=== PATIENT | female | born 1995 | race Caucasian/White ===

== ENCOUNTER 2019-09-27 17:25 | Emergency (ER) | payer OTHER ==
--- NOTE | 2019-09-27 18:00 | EDM.PDOC ---
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 The patient notes that she is 20 weeks and 1 day . She is a . She is a patient of Dr. Jessica Higginbotham. The patient states that she started to notice some mild spotting yesterday, when she went to the bathroom and wiped. She says this was just a light 10 when wiping. She states that prior to coming to the ER, she did have intense cramping that was constant for 3 hours. She states now that she is in the ER, and laying back on the ER caught that the cramping has subsided a little bit. She does notice that she is felt decreased movement from the baby today as well. The patient notes that she was started on magnesium and iron 2 weeks ago for elevated blood pressures. She states that she's been taking her blood pressure since taking the magnesium and iron, and it been around 125/87. Patient notes she is not passing any clots per her vagina, and she states that the blood is not bright red it is only just dictated. She further denies any fevers or chills, dysuria, or urgency, she does have frequency, but states this is not out of the norm for her. She further denies any feelings of a gush of fluid. She thinks she had a good bowel movement this morning. Otherwise she denies any upper abdominal pain, chest pain, or shortness of breath, nausea/ vomiting or diarrhea. 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: - Past Surgical History Musculoskeletal Surgical History: Reports: Other (See Below) Other Musculoskeletal Surgeries/Procedures:: shoulder surgery Social & Family History - Tobacco Use Smoking Status *Q: Never Smoker Second Hand Smoke Exposure: No - Caffeine Use Caffeine Use: Reports: None - Recreational Drug Use Recreational Drug Use: No ED ROS GENERAL - Review of Systems Review Of Systems: See Below Constitutional: Denies: Fever, Chills HEENT: Reports: No Symptoms Respiratory: Denies: Shortness of Breath Cardiovascular: Reports: Blood Pressure Problem (has been using magnesium/iron for this). Denies: Chest Pain Endocrine: Reports: No Symptoms GI/Abdominal: Reports: Abdominal Pain (lower abd pain/pelvic ). Denies: Constipation, Diarrhea, Nausea, Vomiting : Reports: Frequency. Denies: Dysuria, Hematuria, Urgency Musculoskeletal: Reports: No Symptoms Skin: Reports: No Symptoms Neurological: Denies: Headache ED EXAM - Physical Exam Exam: See Below Exam Limited By: No Limitations General Appearance: Alert, WD/WN, No Apparent Distress, Anxious (pt seems anxious and is tearful at exam) Eye Exam: Bilateral Eye: EOMI, Normal Inspection, PERRL Ears: Normal External Exam Nose: Normal Inspection Throat/Mouth: Normal Inspection, Normal Lips, Normal Teeth, Normal Gums, Normal Oropharynx, Normal Voice, No Airway Compromise Head: Atraumatic, Normocephalic Neck: Normal Inspection Respiratory/Chest: No Respiratory Distress, Lungs Clear, Normal Breath Sounds, No Accessory Muscle Use, Chest Non-Tender Cardiovascular: Normal Peripheral Pulses, Regular Rate, Rhythm, No Murmur GI/Abdominal Exam: Normal Bowel Sounds, Soft, No Distention, No Mass, Tender ( mid lower abdomen, suprapubically) (Female) Exam: Normal Bimanual Exam, Normal External Exam, Normal Speculum Exam, Vaginal Discharge (whitish physiologic discharge). No: Adnexal Tenderness , Cervical Discharge, Cervical Fluid, Cervix Motion Tenderness, Tissue Present in Cervix/Vagina, Vaginal Bleeding Heart Tones: Present Heart Tones per Min: 150 Movement: Not Appreciated Extremities: Normal Inspection, Normal Capillary Refill Neurological: Alert, Oriented, Normal Cognition, No Motor/Sensory Deficits Psychiatric: Normal Affect, Normal Mood Skin Exam: Warm, Dry, Intact, Normal Color, No Rash Course - Vital Signs Last Recorded V/S: Last Vital Signs Temp 98.6 F 11/07/19 17:31 Pulse 91 09/27/19 17:31 Resp 16 09/27/19 17:31 BP 159/106 H 09/27/19 17:31 Pulse Ox 90 L 09/27/19 17:31 - Orders/Labs/Meds Labs: Laboratory Tests 09/27/19 Range/Units 19:46 Urine Color Light yellow (Yellow) Urine Appearance Clear (Clear) Urine pH 7.0 (5.0-8.0) Ur Specific [place] 1.015 (1.005-1.030) Urine Protein Negative (Negative) Urine Glucose (UA) Negative (Negative) Urine Ketones 2+ H (Negative) Urine Occult Blood Negative (Negative) Urine Nitrite Negative (Negative) Urine Bilirubin Negative (Negative) Urine Urobilinogen 0.2 (0.2-1.0) Ur Leukocyte Esterase Negative (Negative) Urine RBC 0-5 (0-5) /hpf Urine WBC 0-5 (0-5) /hpf Ur Squamous Epith Cells 0-5 (0-5) /hpf Amorphous Sediment Few H (NOT SEEN) /hpf Urine Bacteria Few (FEW) /hpf Urine Mucus Not seen (FEW) /hpf - Re-Assessments/Exams Free Text/Narrative Re-Assessment/Exam: 09/27/19 18:05 Patient resents to the ED for the evaluation of vaginal bleeding and cramping in 20 week . I did order ultrasound to check the viability of the fetus. It is reassuring that the Doppler tones are 150 bpm. Patient's blood pressure time of triage is mildly elevated at 159/106, this will be observed at this time. 09/27/19 19:27 Ultrasound is done, and the results are discussed with Dr. Portillo. She states that this small abruption could be causing some of her symptoms. She recommends no sexual intercourse, and no other things entered into the vagina for the next few days, she states to try to take it easy, to see if the symptoms do not resolve itself, she may take Tylenol as needed for pain relief. Dr. Portillo notes that if the pain increases or the bleeding increases, she is to return to the ER immediately for evaluation. Departure - Departure Time of Disposition: 19:59 Disposition: Home, Self-Care 01 Condition: Fair Clinical Impression: Abdominal cramping affecting , Uterine fibroid in - Discharge Information *PRESCRIPTION DRUG MONITORING PROGRAM REVIEWED*: No *COPY OF PRESCRIPTION DRUG MONITORING REPORT IN PATIENT LINA: No Instructions: Uterine Fibroids, Warning Signs During Referrals: Jessica Portillo MD [Primary Care Provider] - Forms: ED Department Discharge Additional Instructions: You were evaluated in the ER today regarding your abdominal pain, and vaginal bleeding in . Your ultrasound demonstrated heart rate of 140 bpm, and that the fetuses in the 41st percentile for age by current ultrasound, normal amount of amniotic fluid. There was a small area that was concerning for an abruption, which is an area of the placenta that has torn away from the uterine lining. This could explain some of your symptoms like the vaginal bleeding and abdominal cramping. Your ultrasound was discussed with your provider, Dr. Portillo, she recommends pelvic rest, so no sexual activity, our nothing else entering the vagina at this time, and try to get lots of bed rest over the weekend to see if this doesn 't help relieve some your symptoms. She states to take it really easily. If however your pain increases at all, or if the vaginal bleeding turns bright red , and increases for more than just a light tint, you should return to the ER for prompt management and further evaluation. Your ultrasound also demonstrated that you have a 2.1 cm uterine fibroid, this is a normal abnormal finding, you were given an educational handout regarding uterine fibroids. Your urinalysis was negative for any sort of UTI at this time. Please keep your appointments as previously scheduled with Dr. Portillo and for ultrasound. You may follow up with her on Tuesday, to see maybe if she would want to push her appointment up a little bit. Please return to the ED if your symptoms should change or worsen.
--- NOTE | 2019-09-27 19:00 | US ---
Limited obstetrical ultrasound: Multiple real-time images were obtained transvaginally. Comparison: Previous obstetrical ultrasounds are available, most recent study is 07/19/19. Dates: LMP: LMP given as 05/09/19, JET 02/13/20, gestational age 20 weeks 1 day Current ultrasound: JET 02/11/20, gestational age 20 weeks 3 days Earliest ultrasound (06/21/19): JET 02/13/20, gestational age 20 weeks 1 day presentation: Cephalic Placenta: Right lateral, no findings of placenta previa, minimal hypoechoic area is seen along the edge of the placenta suspicious for minimal abruption Amniotic fluid: REFUGIO 17.96 cm Other findings: Anterior uterine fibroid is seen measuring 2.1 cm. Measurements: BPD: 4.74 cm - 20 weeks 3 days Head circumference: 17.58 cm - 20 weeks 1 day Abdominal circumference: 15.04 cm - 20 weeks 2 days Femur length: 3.35 cm - 20 weeks 4 days Estimated weight: 348 g (0 lbs. 12 oz.), estimated weight 41st percentile for age by current ultrasound Heart rate: 140 BPM Cervical length: 4.9 cm Impression: 1. Single intrauterine fetus currently cephalic in presentation. Dates as noted above. 2. Minimal marginal abruption is felt to be present. 3. Small anterior uterine fibroid. 4. No other complicating process is identified. Diagnostic code #3
== END 2019-09-27 20:07 | disposition home or self-care (01) ==
LOC: JD.ED 17:25
DX: O34.12 Maternal care for benign tumor of corpus uteri, second trimester (principal); Z3A.20 20 weeks gestation of pregnancy
CPT/HCPCS: 76815; 76815-26; 81001; 99283; 99284-25

== ENCOUNTER 2020-02-06 03:00 | Inpatient (IN) | payer OTHER ==
[~2020-02-06 03:00] MED LIST: Bupivacaine 0.25% 10 ML SDV ONE
[2020-02-06] MEDS ORDERED: Acetaminophen 325 MG Tab PO PRN (07:49)
[2020-02-06] MEDS ORDERED: Famotidine 20 MG Tab PO PRN (07:49)
[2020-02-06] MEDS ORDERED: Lidocaine 1% 50 ML MDV INJECT ONE (07:49)
[2020-02-06] MEDS ORDERED: Calcium Carbonate 500 MG Tab.Chew PO PRN (07:49)
[2020-02-06] MEDS ORDERED: Sodium Chloride 0.9% 10 ML Syringe FLUSH PRN (07:49)
[2020-02-06] MEDS ORDERED: Ondansetron 4 MG/2 ML SDV IVPUSH PRN ×2 (07:49→10:02)
[2020-02-06] MEDS: Misoprostol 25 MCG (1/4 of 100 MCG) Tab VAG SCH ×3 (07:50→16:18)
[2020-02-06] MEDS ORDERED: Nalbuphine 10 MG/ML Syringe IVPUSH PRN (07:57)
[2020-02-06] MEDS ORDERED: Oxytocin/Lactated Ringers 10 UNIT/1,000 ML BAG IV SCH ×2 (08:00→16:00)
[2020-02-06] MEDS ORDERED: ePHEDrine 50 MG/ML SDV IVPUSH PRN (10:02)
[2020-02-06] MEDS ORDERED: fentaNYL 100 MCG/2 ML SDV EPIDUR PRN (10:02)
[2020-02-06] MEDS ORDERED: Bupivacaine/fentaNYL/NS 100 ML Bag EPIDUR SCH (10:15)
--- NOTE | 2020-02-06 10:17 | PCM.PREANE ---
Preanesthetic Assessment - Anesthesia/Transfusion/Family Hx Anesthesia History: Prior Anesthesia Reaction Type of Anesthesia Reaction: Other (see below) (quit breathing in PACU after shoulder surgery) Family History of Anesthesia Reaction: No Transfusion History: No Prior Transfusion(s) Intubation History: Unknown - Review of Systems General: No Symptoms Pulmonary: No Symptoms (Smoked prior to being : 1 ppd times 10 years.) Cardiovascular: No Symptoms (has been evaluated for heart and has come back negative: (patient states her and her parents have moments when they feel like their hearts stop for a short period and then start back up)), Palpitations, Lightheadedness (with position changes with ) Gastrointestinal: No Symptoms (GERD with ) Neurological: No Symptoms Other: Reports: None - Physical Assessment NPO Status Date: 02/06/20 NPO Status Time: 09:30 Vital Signs: Last Vital Signs Temp 37.0 C 02/06/20 08:27 Pulse 79 02/06/20 08:27 Resp 16 02/06/20 08:27 BP 125/69 02/06/20 08:27 Pulse Ox Height: 1.57 m Weight: 97.522 kg ASA Class: 2 Mental Status: Alert & Oriented x3 Airway Class: Mallampati = 2 Dentition: Reports: Normal Dentition, [place] Thyro-Mental Finger Breadths: 3 Mouth Opening Finger Breadths: 3 ROM/Head Extension: Full Lungs: Clear to Auscultation, Normal Respiratory Effort Cardiovascular: Regular Rate, Regular Rhythm, No Murmurs - Lab Values: Laboratory Last Values Blood Type O POSITIVE 02/06/20 08:30 Gel Antibody Screen Negative 02/06/20 08:30 All labs reviewed and noted and within acceptable ranges to proceed with epidural if desired. 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: - Past Surgical History Musculoskeletal Surgical History: Reports: Other (See Below) Other Musculoskeletal Surgeries/Procedures:: shoulder surgery - HOME MEDS Home Medications: Home Meds Docosahexanoic Acid [ Dha] 1 tab PO DAILY 09/27/19 [History] Ferrous Gluconate [Iron] 240 mg PO DAILY 09/27/19 [History] Magnesium 200 mg PO DAILY 09/27/19 [History] - CURRENT (IN HOUSE) MEDS Current Meds: Current Medications Acetaminophen (Tylenol) 650 mg PO Q4H PRN PRN Reason: Pain (Mild 1-3) and fever Calcium Carbonate/Glycine (Tums) 1,000 mg PO Q2H PRN PRN Reason: Indigestion Ephedrine Sulfate (Ephedrine Sulfate) 5 mg IVPUSH ASDIRECTED PRN PRN Reason: Hypotension Famotidine (Pepcid) 20 mg PO Q12H PRN PRN Reason: Heartburn Fentanyl (Sublimaze) 100 mcg EPIDUR Q3H PRN PRN Reason: Pain Fentanyl/Bupivacaine HCl (Fentanyl/Bupivacaine/Ns 2 Mcg-0.125% 100 Ml) 100 ml EPIDUR ASDIRECTED TETE Lactated Ringer's (Ringers, Lactated) 1,000 mls @ 100 mls/hr IV ASDIRECTED TETE Oxytocin/Lactated Ringer's (Pitocin In Lr 10 Units/1,000 Ml) 10 unit in 1,000 mls @ 500 mls/hr IV .CONTINUOUS [facility] Misoprostol (Cytotec) 25 mcg VAG Q4H TETE Stop: 02/06/20 16:01 Nalbuphine HCl (Nubain) 10 mg IVPUSH Q2H PRN PRN Reason: Pain Ondansetron HCl (Zofran) 4 mg IVPUSH Q4H PRN PRN Reason: Nausea/Vomiting Ondansetron HCl (Zofran) 4 mg IVPUSH ONETIME PRN PRN Reason: Nausea/Vomiting Sodium Chloride (Saline Flush) 10 ml FLUSH ASDIRECTED PRN PRN Reason: Keep Vein Open Discontinued Medications Lidocaine HCl (Xylocaine 1%) 20 ml INJECT ONETIME ONE Stop: 02/06/20 07:50
--- NOTE | 2020-02-06 11:01 | PCM.SN ---
- Free Text/Narrative Note: Anesthesia Noted: Start: 1000 Stop: 1030 Anesthesia requested for IV start. 20 gauge to right wrist times three attempts. Site patent/intact and flushed with 10ml's normal saline.
--- NOTE | 2020-02-06 14:45 | PCM.LDHP ---
L&D History of Present Illness - General Date of Service: 02/06/20 Admit Problem/Dx: Patient Status Order with Admit Dx/Problem 02/06/20 07:50 Patient Status [ADT] Routine Admission Diagnosis/Problem Admission Diagnosis/Problem Source of Information: Patient History Limitations: Reports: No Limitations - History of Present Illness Introduction:: 25 year old admitted for elective induction of labor at 39 weeks gestation. She has been bordering preeclampsia with protein in her urine and initially elevated bp readings at home, but then discovered that her home cuff was reading falsely high. She has not had elevated bp readings in the clinic. We have been doing twice weekly visits with BPP and NST that have all been wnl. PIH labs have been wnl except for urine protein to creatinine ratio of 0.2 to 0.4. Last BPP was yesterday and baby scored 8/8 and EFW was 7 lb 15 oz (68%). Posterior placenta and REFUGIO 10.4. She denies feeling contractions and membranes intact. GBS is negative. Her labs show blood type O+, antibody screen negative, infectious disease testing all negative. Good immunity to rubella and varicella. 1 hour glucola was 128. Female sex chromosomes noted on [place] and negative for trisomies. MSAFP is negative. Plans to breastfeed. 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: , Other (See Below) Other OB/BYN History: LSIL on pap 11/2017, normal paps since then - Past Surgical History Musculoskeletal Surgical History: Reports: Other (See Below) Other Musculoskeletal Surgeries/Procedures:: shoulder surgery Social & Family History - Family History Family Medical History: Noncontributory - Tobacco Use Smoking Status *Q: Never Smoker Second Hand Smoke Exposure: No - Caffeine Use Caffeine Use: Reports: None - Recreational Drug Use Recreational Drug Use: No - Living Situation & Occupation Living situation: Reports: with Significant Other 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) H&P Review of Systems - Review of Systems: Review Of Systems: See Below General: Reports: No Symptoms HEENT: Reports: No Symptoms Pulmonary: Reports: No Symptoms Cardiovascular: Reports: Edema (swelling in legs and hands) Gastrointestinal: Reports: Other (heartburn, using Pepcid) Genitourinary: Reports: No Symptoms Musculoskeletal: Reports: No Symptoms Skin: Reports: No Symptoms Psychiatric: Reports: No Symptoms Neurological: Reports: No Symptoms Hematologic/Lymphatic: Reports: No Symptoms Immunologic: Reports: No Symptoms L&D Exam - Exam Exam: See Below - Vital Signs Vital Signs: Last Vital Signs Temp 37.0 C 02/06/20 08:27 Pulse 79 02/06/20 08:27 Resp 16 02/06/20 08:27 BP 125/69 02/06/20 08:27 Pulse Ox Weight: 97.522 kg - OB Specific Contraction Duration (sec): no contractions Movement: Active Heart Tones: Present Heart Tones per Min: 140 Heart Rate (FHR) Variability: Moderate (6-25 bmp) Presentation: Vertex Estimated Weight: 7 lb 15 oz by ultrasound 02/05/20 - Goodwin Score Goodwin Score Cervix Position: Anterior Goodwin Score Consistency: Soft Goodwin Score Effacement: 31-50% Goodwin Score Dilation: 1-2 cm Goodwin Score Infant's Station: -3 Goodwin Score Total: 6 - Exam General: Alert, Oriented, Cooperative HEENT: Conjunctiva Clear, Mucosa Moist & [place], Pupils Equal Neck: Trachea Midline Lungs: Normal Respiratory Effort Cardiovascular: Regular Rate, Regular Rhythm GI/Abdominal Exam: Normal Bowel Sounds, Soft Rectal Exam: Deferred Genitourinary: Normal external exam Back Exam: Normal Inspection, Full Range of Motion Extremities: Pedal Edema (1+) Skin: Warm, Dry, Intact Neurological: Cranial Nerves Intact, Reflexes Equal Bilateral Psychiatric: Alert, Normal Affect, Normal Mood - Patient Data Lab Results Last 24 hrs: Laboratory Results - last 24 hr 02/06/20 02/06/20 Range/Units 08:30 08:30 WBC 10.71 H (3.98-10.04) K/mm3 RBC 4.61 (3.98-5.22) M/mm3 Hgb 12.7 (11.2-15.7) gm/dl Hct 39.5 (34.1-44.9) % MCV 85.7 (79.4-94.8) fl MCH 27.5 (25.6-32.2) pg MCHC 32.2 (32.2-35.5) g/dl RDW Std Deviation 42.8 (36.4-46.3) fL Plt Count 236 (182-369) K/mm3 MPV 10.9 (9.4-12.3) fl Neut % (Auto) 69.5 (34.0-71.1) % Lymph % (Auto) 16.8 L (19.3-51.7) % [place] % (Auto) 12.3 (4.7-12.5) % Eos % (Auto) 0.4 L (0.7-5.8) Baso % (Auto) 0.2 (0.1-1.2) % Neut # (Auto) 7.44 H (1.56-6.13) K/mm3 Lymph # (Auto) 1.80 (1.18-3.74) K/mm3 [place] # (Auto) 1.32 H (0.24-0.36) K/mm3 Eos # (Auto) 0.04 (0.04-0.36) K/mm3 Baso # (Auto) 0.02 (0.01-0.08) K/mm3 Blood Type O POSITIVE Gel Antibody Screen Negative Result Diagrams: 02/06/20 08:30 - Problem List (1) 39 weeks gestation of SNOMED Code(s): 19267045 ICD Code: Z3A.39 - 39 WEEKS GESTATION OF Status: Acute Current Visit: Yes (2) Encounter for elective induction of labor SNOMED Code(s): 197105357 ICD Code: Z34.90 - ENCNTR FOR SUPRVSN OF NORMAL , UNSP, UNSP TRIMESTER Status: Acute Current Visit: Yes Problem List Initiated/Reviewed/Updated: Yes Orders Last 24hrs: Active Orders 24 hr Category Date Time Status Patient Status [ADT] Routine ADT 02/06/20 07:50 Active Activity as Tolerated [RC] PFP Care 02/06/20 07:50 Active Communication Order [RC] ASDIRECTED Care 02/06/20 07:50 Active Heart Tones [RC] ASDIRECTED Care 02/06/20 07:50 Active Notify Provider [RC] ASDIRECTED Care 02/06/20 10:02 Active Notify Provider [RC] PFP Care 02/06/20 07:50 Active Notify Provider [RC] PRN Care 02/06/20 07:50 Active Oxygen Therapy [RC] ASDIRECTED Care 02/06/20 10:02 Active Peripheral IV Care [RC] Q2HR Care 02/06/20 07:50 Active Pulse Oximetry [RC] ASDIRECTED Care 02/06/20 10:02 Active Vital Signs [RC] PER UNIT ROUTINE Care 02/06/20 07:50 Active Regular Diet [DIET] Diet 02/06/20 Breakfast Active RAPID PLASMA REAGIN,RPR [CHEM] Routine Lab 02/06/20 08:30 Received Acetaminophen [Tylenol] Med 02/06/20 07:49 Active 650 mg PO Q4H PRN Bupivacaine/fentaNYL/NS [fentaNYL/Bupivacaine/NS 2 MCG- Med 02/06/20 10:15 Active 0.125% 100 ML] 100 ml EPIDUR ASDIRECTED Calcium Carbonate [Tums] Med 02/06/20 07:49 Active 1,000 mg PO Q2H PRN Famotidine [Pepcid] Med 02/06/20 07:49 Active 20 mg PO Q12H PRN Lactated Ringers [Ringers, Lactated] 1,000 ml Med 02/06/20 08:00 Active IV ASDIRECTED Nalbuphine [Nubain] Med 02/06/20 07:57 Active 10 mg IVPUSH Q2H PRN Ondansetron [Zofran] Med 02/06/20 10:02 Active 4 mg IVPUSH ONETIME PRN Ondansetron [Zofran] Med 02/06/20 07:49 Active 4 mg IVPUSH Q4H PRN Oxytocin/Lactated Ringers [Pitocin in LR 10 Units/1,000 Med 02/06/20 08:00 Active ML] 10 unit in 1,000 ml IV .CONTINUOUS Sodium Chloride 0.9% [Saline Flush] Med 02/06/20 07:49 Active 10 ml FLUSH ASDIRECTED PRN ePHEDrine [ePHEDrine sulfate] Med 02/06/20 10:02 Active 5 mg IVPUSH ASDIRECTED PRN fentaNYL [Sublimaze] Med 02/06/20 10:02 Active 100 mcg EPIDUR Q3H PRN miSOPROStoL [Cytotec] Med 02/06/20 08:00 Active 25 mcg VAG Q4H Electronic Heart Tones Ext w TOCO [WOMSER] Oth 02/06/20 07:50 Ordered Routine Electronic Heart Tones Internal [WOMSER] Per Unit Oth 02/06/20 07:50 Ordered Routine Peripheral IV Insertion Adult [OM.PC] Routine Oth 02/06/20 07:50 Ordered Resuscitation Status Routine Resus Stat 02/06/20 07:49 Ordered Medication Orders Acetaminophen (Tylenol) 650 mg PO Q4H PRN PRN Reason: Pain (Mild 1-3) and fever Calcium Carbonate/Glycine (Tums) 1,000 mg PO Q2H PRN PRN Reason: Indigestion Ephedrine Sulfate (Ephedrine Sulfate) 5 mg IVPUSH ASDIRECTED PRN PRN Reason: Hypotension Famotidine (Pepcid) 20 mg PO Q12H PRN PRN Reason: Heartburn Fentanyl (Sublimaze) 100 mcg EPIDUR Q3H PRN PRN Reason: Pain Fentanyl/Bupivacaine HCl (Fentanyl/Bupivacaine/Ns 2 Mcg-0.125% 100 Ml) 100 ml EPIDUR ASDIRECTED TETE Lactated Ringer's (Ringers, Lactated) 1,000 mls @ 100 mls/hr IV ASDIRECTED TETE Oxytocin/Lactated Ringer's (Pitocin In Lr 10 Units/1,000 Ml) 10 unit in 1,000 mls @ 500 mls/hr IV .CONTINUOUS [facility] Misoprostol (Cytotec) 25 mcg VAG Q4H TETE Stop: 02/06/20 16:01 Last Admin: 02/06/20 12:30 Dose: 25 mcg Admin: 02/06/20 07:50 Dose: 25 mcg Nalbuphine HCl (Nubain) 10 mg IVPUSH Q2H PRN PRN Reason: Pain Ondansetron HCl (Zofran) 4 mg IVPUSH Q4H PRN PRN Reason: Nausea/Vomiting Ondansetron HCl (Zofran) 4 mg IVPUSH ONETIME PRN PRN Reason: Nausea/Vomiting Sodium Chloride (Saline Flush) 10 ml FLUSH ASDIRECTED PRN PRN Reason: Keep Vein Open Assessment/Plan Comment:: 25 year old at 39 weeks gestation admitted for elective induction of labor. GBS negative, blood type O +. Cervix is soft, 30% effaced, anterior and 1 cm dilated. Station -3. Cytotec 25 mcg pv placed to ripen cervix and will plan to repeat doses q 4 hours up to a total of 3 doses if needed and then transition to pitocin IV for induction. Will plan AROM when appropriate. Patient would like to try to avoid epidural. She plans to breastfeed.
--- NOTE | 2020-02-06 15:16 | PCM.SN ---
- Free Text/Narrative Note: Patient has had 2 doses of cytotec 25 mcg pv and is still comfortable, only feeling cramping. Her BP has been borderline with systolic 140-150 range. O/E cervix anterior, soft, 3 cm dilated and 50% effaced. STation -1. Assessment: Cervical ripening. She is not currently on the monitor, but is not feeling contractions. Plan: Next cytotec dose is due at 1600 and will get her back on the monitor to evaluate if she is having contractions. Will decide at 1600 if we will do another cytotec dose or switch to pitocin IV. Plan AROM when appropriate.
[2020-02-06] MEDS: Lactated Ringers 1,000 ML IV SCH ×2 (16:18→19:56)
--- NOTE | 2020-02-06 20:33 | PCM.SN ---
- Free Text/Narrative Note: Pitocin is currently at 12 mu/min. Patient is comfortable, just feeling pressure and tightenings, but not really pain. [place] is showing irregular contraction pattern with triplets most of the time. FHR is reactive, moderate variability, good accelerations with baseline 160 at this time. BP has been 130 -140/70-90. O/E: Cervix anterior, soft, 50-60% effaced, 4 cm dilated and station -1. AROM performed at about 2020 to augment labor and large amount of clear fluid drained. Fetus tolerated the procedure. A: Latent phase of labor, AROM for clear fluid. FHR category I. Patient is comfortable. P: Continue pitocin induction per protocol. Expectant management of labor. Anticipate vaginal delivery.
[2020-02-07] MEDS: Lactated Ringers 1,000 ML IV SCH (00:16)
[2020-02-07] MEDS ORDERED: Lidocaine 1% 50 ML MDV ONE (03:06)
--- NOTE | 2020-02-07 03:56 | PCM.DEL ---
L & D Note - General Info Date of Service: 02/07/20 Mother's Due Date: 02/13/20 - Delivery Note Labor: Induced by Oxytocin Cervical Ripening Method: Misoprostil Delivery Outcome: Livebirth Delivery Method: Spontaneous Vaginal Delivery-Single Infant Delivery Mode: Spontaneous Presentation: Right Occiput Anterior (SANTA) Nuchal Cord: None Prep: Povidone-Iodine (Betadine Anesthesia Type: Epidural Anesthetic: Lidocaine (Xylocaine) 1% Plain Local Anesthetic Volume: Other (20 ml) Amniotic Fluid Description: Clear Episiotomy Type: None Laceration: 1st Degree, Labial Suture type: Vicryl Suture size: 4-0 (running subcuticular stitch for bilateral labial tears) Placenta: Intact, Spontaneous Cord: 3 Vessels Estimated Blood Loss: 200 Resuscitation Needed: No : Bulb Syringe, Stimulated, Warmed, [place] Used Provider: Jessica Portillo Score 1 min: 8 Score 5 min: 9 Delivery Comments (Free Text/Narrative):: 25 year old admitted for elective induction of labor at 39 weeks gestation. She has been bordering preeclampsia with protein in her urine and initially elevated bp readings at home, but then discovered that her home cuff was reading falsely high. She has not had elevated bp readings in the clinic. We have been doing twice weekly visits with BPP and NST that have all been wnl. PIH labs have been wnl except for urine protein to creatinine ratio of 0.2 to 0.4. Last BPP was yesterday and baby scored 8/8 and EFW was 7 lb 15 oz (68%). Posterior placenta and REFUGIO 10.4. She denies feeling contractions and membranes intact. GBS is negative. Her labs show blood type O+, antibody screen negative, infectious disease testing all negative. Good immunity to rubella and varicella. 1 hour glucola was 128. Female sex chromosomes noted on Prequel and negative for trisomies. MSAFP is negative. Plans to breastfeed. She received cytotec 25 mcg pv x 2 doses and when the third dose was due her cervix was 3 cm dilated, 50 % effaced and station -1. We decided to start pitocin IV per protocol at that time. Pitocin increased to a max of 12 mu/min and I performed an AROM at 2019 to augment her labor. Shortly after AROM, her contractions became much stronger and painful to her. She was 4 cm dilated at that time. She received an epidural at midnight and had good relief with that. Her bp readings had been elevated in the 140-160/100-110 range before the epidural, but after they settled into the 115-130/70 range. We started to see some late decelerations. She received IV fluid boluses and when she was checked at about 0200, she was completely dilated, station 0 and I was called. We started pushing at 0213 and she did well and baby tolerated second stage of labor. Head delivered from a SANTA presentation, there was no nuchal cord and then the shoulders and rest of the baby delivered without difficulty. Time of delivery was 0300 and it was a baby girl. She cried at the perineum. Mouth and nose were suctioned with the bulb suction and then baby was placed skin to skin on mother's abdomen. Once the cord stopped pulsating, it was clamped and cut and baby was moved up to mother's chest, skin to skin. Apgars were 8 and 9 at 1 and 5 minutes respectively. Placenta delivered spontaneously at 0304 and was intact and there were 3 vessels in the cord. IV pitocin bolus was started after delivery of baby. There were 2 labial tears that were repaired with 4-0 vicryl with a running subcuticular stitch. There was a minor 1st degree perineal laceration that did not need to be sutured. EBL 200 ml. Bimanual exam was done, some blood clots expressed and fundus was firm. Both Mom and Baby were left in the delivery room in stable condition. Baby was latched by 0330. Induction Criteria - Goodwin Score Goodwin Score Dilation: 1-2 cm Goodwin Score Effacement: 40-50% Goodwin Score 's Station: -3 Goodwin Score Consistency: Soft Goodwin Score Cervix Position: Anterior Goodwin Score Total: 6 Goodwin Score Presenting Part: Reports: Cephalic - Induction Gestational Age >/= 39 wks: Yes Medical Indication: Elective induction Estimated Pelvis: Reports: Adequate Reassuring Monitoring Strip: Yes Absence of Tachy Systole: Yes - Augmentation Estimated Pelvis: Reports: Adequate Weight Estimated:: Reports: AGA Reassuring Monitoring Strip: Yes Absence of Tachy Systole: Yes - General Info Date of Service: 02/07/20 Admission Dx/Problem (Free Text): Patient Status Order with Admit Dx/Problem 02/06/20 07:50 Patient Status [ADT] Routine Admission Diagnosis/Problem Admission Diagnosis/Problem Functional Status: Reports: Pain Controlled - Review of Systems General: Reports: No Symptoms HEENT: Reports: No Symptoms Pulmonary: Reports: No Symptoms Cardiovascular: Reports: No Symptoms Gastrointestinal: Reports: No Symptoms Genitourinary: Reports: No Symptoms Musculoskeletal: Reports: No Symptoms Skin: Reports: No Symptoms Neurological: Reports: No Symptoms Psychiatric: Reports: No Symptoms - Patient Data Vitals - Most Recent: Last Vital Signs Temp 37.0 C 02/06/20 08:27 Pulse 79 02/06/20 08:27 Resp 16 02/06/20 08:27 BP 125/69 02/06/20 08:27 Pulse Ox Weight - Most Recent: 97.522 kg I&O - Last 24 Hours: Intake & Output 02/06/20 02/06/20 02/07/20 14:59 22:59 06:59 Intake Total 1240 1700 Output Total 300 Balance 1240 1400 Lab Results Last 24 Hours: Laboratory Results - last 24 hr 02/06/20 02/06/20 02/06/20 Range/Units 08:30 08:30 08:30 WBC 10.71 H (3.98-10.04) K/mm3 RBC 4.61 (3.98-5.22) M/mm3 Hgb 12.7 (11.2-15.7) gm/dl Hct 39.5 (34.1-44.9) % MCV 85.7 (79.4-94.8) fl MCH 27.5 (25.6-32.2) pg MCHC 32.2 (32.2-35.5) g/dl RDW Std Deviation 42.8 (36.4-46.3) fL Plt Count 236 (182-369) K/mm3 MPV 10.9 (9.4-12.3) fl Neut % (Auto) 69.5 (34.0-71.1) % Lymph % (Auto) 16.8 L (19.3-51.7) % [place] % (Auto) 12.3 (4.7-12.5) % Eos % (Auto) 0.4 L (0.7-5.8) Baso % (Auto) 0.2 (0.1-1.2) % Neut # (Auto) 7.44 H (1.56-6.13) K/mm3 Lymph # (Auto) 1.80 (1.18-3.74) K/mm3 [place] # (Auto) 1.32 H (0.24-0.36) K/mm3 Eos # (Auto) 0.04 (0.04-0.36) K/mm3 Baso # (Auto) 0.02 (0.01-0.08) K/mm3 RPR Non-reactive (NONREACTIVE) Blood Type O POSITIVE Gel Antibody Screen Negative Med Orders - Current: Current Medications Acetaminophen (Tylenol) 650 mg PO Q4H PRN PRN Reason: Pain (Mild 1-3) and fever Calcium Carbonate/Glycine (Tums) 1,000 mg PO Q2H PRN PRN Reason: Indigestion Ephedrine Sulfate (Ephedrine Sulfate) 5 mg IVPUSH ASDIRECTED PRN PRN Reason: Hypotension Famotidine (Pepcid) 20 mg PO Q12H PRN PRN Reason: Heartburn Fentanyl (Sublimaze) 100 mcg EPIDUR Q3H PRN PRN Reason: Pain Last Admin: 02/06/20 23:37 Dose: 100 mcg Fentanyl/Bupivacaine HCl (Fentanyl/Bupivacaine/Ns 2 Mcg-0.125% 100 Ml) 100 ml EPIDUR ASDIRECTED TETE Last Admin: 02/06/20 23:38 Dose: 100 ml Lactated Ringer's (Ringers, Lactated) 1,000 mls @ 100 mls/hr IV ASDIRECTED TETE Last Admin: 02/07/20 00:16 Dose: 100 mls/hr Oxytocin/Lactated Ringer's (Pitocin In Lr 10 Units/1,000 Ml) 10 unit in 1,000 mls @ 500 mls/hr IV .CONTINUOUS TETE Oxytocin/Lactated Ringer's (Pitocin In Lr 10 Units/1,000 Ml) 10 unit in 1,000 mls @ 12 mls/hr IV TITRATE TETE; Protocol Last Titration: 02/07/20 03:02 Dose: 500 mls/hr Nalbuphine HCl (Nubain) 10 mg IVPUSH Q2H PRN PRN Reason: Pain Ondansetron HCl (Zofran) 4 mg IVPUSH Q4H PRN PRN Reason: Nausea/Vomiting Ondansetron HCl (Zofran) 4 mg IVPUSH ONETIME PRN PRN Reason: Nausea/Vomiting Sodium Chloride (Saline Flush) 10 ml FLUSH ASDIRECTED PRN PRN Reason: Keep Vein Open Discontinued Medications Lidocaine HCl (Xylocaine 1%) 20 ml INJECT ONETIME ONE Stop: 02/06/20 07:50 Last Admin: 02/07/20 03:11 Dose: 20 ml Lidocaine HCl (Xylocaine 1%) Confirm Administered Dose 50 ml .ROUTE .STK-MED ONE Stop: 02/07/20 03:07 Last Admin: 02/07/20 03:11 Dose: Not Given Misoprostol (Cytotec) 25 mcg VAG Q4H TETE Stop: 02/06/20 16:01 Last Admin: 02/06/20 16:18 Dose: Not Given - Exam General: Alert, Oriented, Cooperative, No Acute Distress HEENT: Pupils Equal, Mucous Membr. Moist/[place] Neck: Supple Lungs: Normal Respiratory Effort Cardiovascular: Regular Rate, Regular Rhythm GI/Abdominal Exam: Normal Bowel Sounds, Soft (Female) Exam: Fundal Height (Fundus firm, 2 fingers below U), Vaginal Bleeding Back Exam: Normal Inspection, Full Range of Motion Extremities: Normal Inspection, Normal Range of Motion, Pedal Edema Skin: Warm, Dry, Intact Neurological: No New Focal Deficit Psy/Mental Status: Alert, Normal Affect, Normal Mood - Problem List & Annotations (1) 39 weeks gestation of SNOMED Code(s): 77376520 Code(s): Z3A.39 - 39 WEEKS GESTATION OF Status: Acute Current Visit: Yes (2) Encounter for elective induction of labor SNOMED Code(s): 864951355 Code(s): Z34.90 - ENCNTR FOR SUPRVSN OF NORMAL , UNSP, UNSP TRIMESTER Status: Acute Current Visit: Yes (3) Normal spontaneous vaginal delivery SNOMED Code(s): 45564359, 634287841 Code(s): O80 - ENCOUNTER FOR FULL-TERM UNCOMPLICATED DELIVERY Status: Acute Current Visit: Yes (4) Mother currently breast-feeding SNOMED Code(s): 143141708 Code(s): Z39.1 - ENCOUNTER FOR CARE AND EXAMINATION OF LACTATING MOTHER Status: Acute Current Visit: Yes - Problem List Review Problem List Initiated/Reviewed/Updated: Yes - My Orders Last 24 Hours: My Active Orders 02/06/20 07:49 Acetaminophen [Tylenol] 650 mg PO Q4H PRN Calcium Carbonate [Tums] 1,000 mg PO Q2H PRN Famotidine [Pepcid] 20 mg PO Q12H PRN Ondansetron [Zofran] 4 mg IVPUSH Q4H PRN Sodium Chloride 0.9% [Saline Flush] 10 ml FLUSH ASDIRECTED PRN Resuscitation Status Routine 02/06/20 07:50 Patient Status [ADT] Routine Activity as Tolerated [RC] PFP Communication Order [RC] ASDIRECTED Heart Tones [RC] ASDIRECTED Notify Provider [RC] PFP Notify Provider [RC] PRN Peripheral IV Care [RC] Q2HR Vital Signs [RC] PER UNIT ROUTINE Electronic Heart Tones Ext w TOCO [WOMSER] Routine Electronic Heart Tones Internal [WOMSER] Per Unit Routine Peripheral IV Insertion Adult [OM.PC] Routine 02/06/20 07:57 Nalbuphine [Nubain] 10 mg IVPUSH Q2H PRN 02/06/20 08:00 Lactated Ringers [Ringers, Lactated] 1,000 ml IV ASDIRECTED Oxytocin/Lactated Ringers [Pitocin in LR 10 Units/1,000 ML] 10 unit in 1,000 ml IV .CONTINUOUS 02/06/20 16:00 Oxytocin/Lactated Ringers [Pitocin in LR 10 Units/1,000 ML] 10 unit in 1,000 ml IV TITRATE 02/06/20 Breakfast Regular Diet [DIET] 02/07/20 03:33 Patient Status Manage Transfer [TRANSFER] Routine - Assessment Assessment:: 25 year old G1 now P1 after . She has bilateral labial tears that were repaired. EBL 200 ml and fundus is firm. Baby has latched in the delivery room. - Plan Plan:: 25 year old at 39 weeks gestation admitted for elective induction of labor. GBS negative, blood type O +. Cervix is soft, 30% effaced, anterior and 1 cm dilated. Station -3. Cytotec 25 mcg pv placed to ripen cervix and will plan to repeat doses q 4 hours up to a total of 3 doses if needed and then transition to pitocin IV for induction. Will plan AROM when appropriate. Patient would like to try to avoid epidural. She plans to breastfeed. 02/07/20 0400: 1. Routine care 2. support and education.
[2020-02-07] MEDS ORDERED: Benzocaine/Menthol 20%-0.5% Spray 56 GM Canister TOP PRN (04:09)
[2020-02-07] MEDS ORDERED: Docusate Sodium 100 MG Cap PO PRN (04:09)
[2020-02-07] MEDS ORDERED: Acetaminophen 325 MG Tab PO PRN (04:09)
[2020-02-07] MEDS ORDERED: Witch Hazel Medicated Pads 40/Jar TOP PRN (04:09)
[2020-02-07] MEDS ORDERED: Aluminum Hydroxide/Magnesium Hydroxide/Simethicone Susp 30 ML Cup PO PRN (04:09)
--- NOTE | 2020-02-07 08:24 | PCM48HPAN ---
Post Anesthesia Note - EVALUATION WITHIN 48HRS OF ANESTHETIC Vital Signs in Normal Range: Yes Patient Participated in Evaluation: Yes Respiratory Function Stable: Yes Airway Patent: Yes Cardiovascular Function Stable: Yes Hydration Status Stable: Yes Pain Control Satisfactory: Yes Nausea and Vomiting Control Satisfactory: Yes Mental Status Recovered: Yes Vital Signs: Last Vital Signs Temp 37.0 C 02/06/20 08:27 Pulse 79 02/06/20 08:27 Resp 16 02/06/20 08:27 BP 125/69 02/06/20 08:27 Pulse Ox
[2020-02-07] MEDS: Ferrous Sulfate 324 MG Tab.EC PO SCH (09:59)
[2020-02-07] MEDS: Prenatal Multivitamin with Calcium/Folic Acid/Iron Tab PO SCH (09:59)
[2020-02-07] MEDS: Ibuprofen 800 MG Tab PO PRN ×2 (13:49→21:11)
[2020-02-08] MEDS: Ferrous Sulfate 324 MG Tab.EC PO SCH (08:20)
[2020-02-08] MEDS: Prenatal Multivitamin with Calcium/Folic Acid/Iron Tab PO SCH (08:20)
[2020-02-08] MEDS: Ibuprofen 800 MG Tab PO PRN (08:59)
--- NOTE | 2020-02-08 18:58 | PCM.DCSUM1 ---
Discharge Summary - Hospital Course Free Text/Narrative:: 25 year old admitted for elective induction of labor at 39 weeks gestation. She has been bordering preeclampsia with protein in her urine and initially elevated bp readings at home, but then discovered that her home cuff was reading falsely high. She has not had elevated bp readings in the clinic. We have been doing twice weekly visits with BPP and NST that have all been wnl. PIH labs have been wnl except for urine protein to creatinine ratio of 0.2 to 0.4. Last BPP was yesterday and baby scored 8/8 and EFW was 7 lb 15 oz (68%). Posterior placenta and REFUGIO 10.4. She denies feeling contractions and membranes intact. GBS is negative. Her labs show blood type O+, antibody screen negative, infectious disease testing all negative. Good immunity to rubella and varicella. 1 hour glucola was 128. Female sex chromosomes noted on Prequel and negative for trisomies. MSAFP is negative. Plans to breastfeed. She received cytotec 25 mcg pv x 2 doses and when the third dose was due her cervix was 3 cm dilated, 50 % effaced and station -1. We decided to start pitocin IV per protocol at that time. Pitocin increased to a max of 12 mu/min and I performed an AROM at 2019 to augment her labor. Shortly after AROM, her contractions became much stronger and painful to her. She was 4 cm dilated at that time. She received an epidural at midnight and had good relief with that. Her bp readings had been elevated in the 140-160/100-110 range before the epidural, but after they settled into the 115-130/70 range. We started to see some late decelerations. She received IV fluid boluses and when she was checked at about 0200, she was completely dilated, station 0 and I was called. We started pushing at 0213 and she did well and baby tolerated second stage of labor. Head delivered from a SANTA presentation, there was no nuchal cord and then the shoulders and rest of the baby delivered without difficulty. Time of delivery was 0300 and it was a baby girl. weight was 3.53 kg. She cried at the perineum. Mouth and nose were suctioned with the bulb suction and then baby was placed skin to skin on mother's abdomen. Once the cord stopped pulsating, it was clamped and cut and baby was moved up to mother's chest, skin to skin. Apgars were 8 and 9 at 1 and 5 minutes respectively. Placenta delivered spontaneously at 0304 and was intact and there were 3 vessels in the cord. IV pitocin bolus was started after delivery of baby. There were 2 labial tears that were repaired with 4-0 vicryl with a running subcuticular stitch. There was a minor 1st degree perineal laceration that did not need to be sutured. EBL 200 ml. Bimanual exam was done, some blood clots expressed and fundus was firm. Both Mom and Baby were left in the delivery room in stable condition. Baby was latched by 0330. She has done well , only needing occasional ibuprofen for cramping. She has been and that has been going well. She denies nipple pain and no bruising or cracking of her nipples. Her bleeding is slowing, not passing any clots. Her mood has been good. She denies headache or nausea. HEr bp has been stable . She does still have peripheral edema, but patient feels that the swelling is decreasing and denies calf pain. her mood has been good and she is bonding well with baby. Diagnosis: Stroke: No Modified [place] Scale: No Symptoms at All Modified [place] Scale Score: 0 - Discharge Data Discharge Date: 02/08/20 Discharge Disposition: Home, Self-Care 01 Condition: Good - Referral to Home Health Primary Care Physician: Jessica Portillo MD - Discharge Diagnosis/Problem(s) (1) 39 weeks gestation of SNOMED Code(s): 94726508 ICD Code: Z3A.39 - 39 WEEKS GESTATION OF Status: Acute (2) Encounter for elective induction of labor SNOMED Code(s): 597877393 ICD Code: Z34.90 - ENCNTR FOR SUPRVSN OF NORMAL , UNSP, UNSP TRIMESTER Status: Acute (3) Normal spontaneous vaginal delivery SNOMED Code(s): 17252778, 542621542 ICD Code: O80 - ENCOUNTER FOR FULL-TERM UNCOMPLICATED DELIVERY Status: Acute (4) Mother currently breast-feeding SNOMED Code(s): 285734733 ICD Code: Z39.1 - ENCOUNTER FOR CARE AND EXAMINATION OF LACTATING MOTHER Status: Acute - Patient Instructions Diet: Usual Diet as Tolerated Diet, Other: Increase fluid intake for Feeding Instructions: Feed on demand, but try to get baby to feed every 2 hours Activity: As Tolerated Driving: May Drive Today Showering/Bathing: May Shower Wound/Incision Care: Keep Operative Site/Wound Site Clean and Dry Notify Provider of: Fever, Increased Pain, Swelling and Redness, Drainage, Nausea and/or Vomiting Other/Special Instructions: 1. Empty your bladder regularly, every couple of hours. 2. Massage your uterus several times a day. 3. Schedule follow up visit for 6 weeks. Think about what you want to do for control. 4. No intercourse for 6 weeks. - Discharge Plan *PRESCRIPTION DRUG MONITORING PROGRAM REVIEWED*: Not Applicable *COPY OF PRESCRIPTION DRUG MONITORING REPORT IN PATIENT LINA: Not Applicable Home Medications: Home Meds Docosahexanoic Acid [ Dha] 1 tab PO DAILY 09/27/19 [History] Ferrous Gluconate [Iron] 240 mg PO DAILY 09/27/19 [History] Magnesium 200 mg PO DAILY 09/27/19 [History] Acetaminophen [Tylenol] 650 mg PO Q4H PRN tablet 02/08/20 [Rx] Benzocaine/Menthol [Dermoplast Pain Relief [place]] 1 applic TOP ASDIRECTED PRN canister 02/08/20 [Rx] Calcium Carbonate [Tums] 1,000 mg PO Q2H PRN tab.chew 02/08/20 [Rx] Docusate Sodium [Colace] 100 mg PO BID PRN cap 02/08/20 [Rx] Ibuprofen [Motrin] 800 mg PO Q6H PRN tablet 02/08/20 [Rx] witch Isabelle [Tucks] 1 pad TOP ASDIRECTED PRN pad 02/08/20 [Rx] Oxygen Therapy Mode: Room Air Patient Handouts: and Inducing , Rooming-In With Your [place], Exclusive , and Low Milk Supply, and Medicine Use, and Mastitis, and Self-Care, and Returning to Work, Breast Engorgement, Nursing Strike, Tips for a Good Latch, Care After Vaginal Delivery, and Cracked or Sore Nipples, Storing Breast Milk - Discharge Summary/Plan Comment DC Time >30 min.: No Discharge Summary/Plan Comment: 25 year old G1 now P1 was admitted for elective induction of labor at 39 weeks. We used cytotec 25 mcg pv for 2 doses for cervical ripening and then switched to pitocin IV for induction per protocol. AROM was done to augment labor and labor progressed well. She did receive an epidural about midnight, had good relief and was complete by 0200 and then delivered baby by at 0300. She had a baby girl and weight was 3.53 kg. She had bilateral labial tears that were repaired with 4-0 vicryl running subcuticular stitch and there was a small 1st degree perineal tear that did not need to be repaired. Placenta was intact and 3 vessels in the cord. EBL 200 ml. She has been exclusively and doing well. Bleeding is slowing and pain controlled with ibuprofen. BP has been stable . Mood is stable and she is bonding well with her baby. Plan: 1. Routine care. Schedule visit in the clinic in 6 weeks. Ibuprofen or tylenol as needed for cramping. 2. consider contraception to start at 6 week visit. Discussed options with including mini pill, DMPA and IUD. 3. Mood is stable, will monitor. 4. - continue to breastfeed on demand, make sure she is getting a good latch and call with any questions or concerns. Continue to take vitamin and start Vitamin D. Continue iron supplement and mag supplement. - General Info Date of Service: 02/08/20 Admission Dx/Problem (Free Text: Patient Status Order with Admit Dx/Problem 02/06/20 07:50 Patient Status [ADT] Routine Admission Diagnosis/Problem Admission Diagnosis/Problem Functional Status: Reports: Pain Controlled, Tolerating Diet, Ambulating, Urinating - Review of Systems General: Reports: No Symptoms HEENT: Reports: No Symptoms Pulmonary: Reports: No Symptoms Cardiovascular: Reports: No Symptoms Gastrointestinal: Reports: No Symptoms Genitourinary: Reports: No Symptoms Musculoskeletal: Reports: No Symptoms Skin: Reports: No Symptoms Neurological: Reports: No Symptoms Psychiatric: Reports: No Symptoms - Patient Data Vitals - Most Recent: Last Vital Signs Temp 36.4 C 02/08/20 08:23 Pulse 82 02/08/20 08:23 Resp 18 02/08/20 08:23 BP 144/88 H 02/08/20 08:23 Pulse Ox 100 02/08/20 08:23 Weight - Most Recent: 97.522 kg I&O - Last 24 hours: Intake & Output 02/08/20 02/08/20 02/08/20 06:59 14:59 22:59 Intake Total 240 Balance 240 Lab Results - Last 24 hrs: Laboratory Results - last 24 hr 02/08/20 Range/Units 06:45 WBC 10.81 H (3.98-10.04) K/mm3 RBC 3.77 L (3.98-5.22) M/mm3 Hgb 10.1 L D (11.2-15.7) gm/dl Hct 32.9 L (34.1-44.9) % MCV 87.3 (79.4-94.8) fl MCH 26.8 (25.6-32.2) pg MCHC 30.7 L (32.2-35.5) g/dl RDW Std Deviation 44.0 (36.4-46.3) fL Plt Count 168 L (182-369) K/mm3 MPV 10.6 (9.4-12.3) fl Med Orders - Current: Current Medications Discontinued Medications Acetaminophen (Tylenol) 650 mg PO Q4H PRN PRN Reason: Pain (Mild 1-3) and fever Acetaminophen (Tylenol) 650 mg PO Q4H PRN PRN Reason: mild pain or fever Al Hydroxide/Mg Hydroxide (Mag-Al Plus) 30 ml PO Q8H PRN PRN Reason: Heartburn Benzocaine/Menthol (Dermoplast Pain Relief [place]) 0 gm TOP ASDIRECTED PRN PRN Reason: Perineal Comfort Measure Last Admin: 02/07/20 04:40 Dose: 1 applic Bupivacaine HCl (Sensorcaine-Mpf 0.25%) 10 ml .ROUTE .STK-MED ONE Stop: 02/06/20 00:01 Calcium Carbonate/Glycine (Tums) 1,000 mg PO Q2H PRN PRN Reason: Indigestion Docusate Sodium (Colace) 100 mg PO BID PRN PRN Reason: Constipation Ephedrine Sulfate (Ephedrine Sulfate) 5 mg IVPUSH ASDIRECTED PRN PRN Reason: Hypotension Famotidine (Pepcid) 20 mg PO Q12H PRN PRN Reason: Heartburn Fentanyl (Sublimaze) 100 mcg EPIDUR Q3H PRN PRN Reason: Pain Last Admin: 02/06/20 23:37 Dose: 100 mcg Fentanyl/Bupivacaine HCl (Fentanyl/Bupivacaine/Ns 2 Mcg-0.125% 100 Ml) 100 ml EPIDUR ASDIRECTED [facility] Last Admin: 02/06/20 23:38 Dose: 100 ml Ferrous Sulfate (Ferrous Sulfate) 324 mg PO WITHBREAKFAST [facility] Last Admin: 02/08/20 08:20 Dose: 324 mg Lactated Ringer's (Ringers, Lactated) 1,000 mls @ 100 mls/hr IV ASDIRECTED [facility] Last Admin: 02/07/20 00:16 Dose: 100 mls/hr Oxytocin/Lactated Ringer's (Pitocin In Lr 10 Units/1,000 Ml) 10 unit in 1,000 mls @ 500 mls/hr IV .CONTINUOUS TETE Oxytocin/Lactated Ringer's (Pitocin In Lr 10 Units/1,000 Ml) 10 unit in 1,000 mls @ 12 mls/hr IV TITRATE TETE; Protocol Last Titration: 02/07/20 03:02 Dose: 500 mls/hr Ibuprofen (Motrin) 800 mg PO Q6H PRN PRN Reason: Mild pain or fever Last Admin: 02/08/20 08:59 Dose: 800 mg Lidocaine HCl (Xylocaine 1%) 20 ml INJECT ONETIME ONE Stop: 02/06/20 07:50 Last Admin: 02/07/20 03:11 Dose: 20 ml Lidocaine HCl (Xylocaine 1%) Confirm Administered Dose 50 ml .ROUTE .STK-MED ONE Stop: 02/07/20 03:07 Last Admin: 02/07/20 03:11 Dose: Not Given Misoprostol (Cytotec) 25 mcg VAG Q4H [facility] Stop: 02/06/20 16:01 Last Admin: 02/06/20 16:18 Dose: Not Given Nalbuphine HCl (Nubain) 10 mg IVPUSH Q2H PRN PRN Reason: Pain Ondansetron HCl (Zofran) 4 mg IVPUSH Q4H PRN PRN Reason: Nausea/Vomiting Ondansetron HCl (Zofran) 4 mg IVPUSH ONETIME PRN PRN Reason: Nausea/Vomiting Prenat Multivit/[place]/Iron/Folic Ac ( Plus Iron) 1 each PO DAILY [facility] Last Admin: 02/08/20 08:20 Dose: 1 each Sodium Chloride (Saline Flush) 10 ml FLUSH ASDIRECTED PRN PRN Reason: Keep Vein Open Witstephania Gomezel (Tucks) 1 pad TOP ASDIRECTED PRN PRN Reason: Perineal Comfort Measure Last Admin: 02/07/20 04:41 Dose: 1 applic - Exam General: Reports: Alert, Oriented, No Acute Distress HEENT: Reports: Pupils Equal, Pupils Reactive, Mucous Membr. Moist/[place] Neck: Reports: Supple Lungs: Reports: Normal Respiratory Effort Cardiovascular: Reports: Regular Rate, Regular Rhythm GI/Abdominal Exam: Normal Bowel Sounds, Soft, No Distention (Female) Exam: Enlarged Uterus (Fundus at umbilicus, but has full bladder. ) , Vaginal Bleeding Rectal (Female) Exam: Deferred Back Exam: Reports: Normal Inspection, Full Range of Motion, Other (No bruising or tenderness at epidural site) Extremities: Normal Inspection, Normal Range of Motion, Pedal Edema (1+ bilaterally in feet and pretibial. No calf tenderness or masses. ) Skin: Reports: Warm, Dry, Intact Wound/Incisions: Reports: Healing Well Neurological: Reports: No New Focal Deficit Psy/Mental Status: Reports: Alert, Normal Affect, Normal Mood
== END 2020-02-08 13:50 | disposition home or self-care (01) | DRG 807 ==
LOC: JD.OB 03:00 → OBSVTOIN 02-07 03:00 → JD.OB 02-07 03:01
PROVIDERS: ADMIT Family Medicine; ATTEND Family Medicine
PROC: 10E0XZZ Delivery of Products of Conception, External Approach (ICD-10-PCS; principal; 2020-02-07)
PROC: 10907ZC Drainage of Amniotic Fluid, Therapeutic from Products of Conception, Via Natural or Artificial Opening (ICD-10-PCS; 2020-02-07)
PROC: 3E0P7VZ Introduction of Hormone into Female Reproductive, Via Natural or Artificial Opening (ICD-10-PCS; 2020-02-07)
PROC: 4A1HXCZ Monitoring of Products of Conception, Cardiac Rate, External Approach (ICD-10-PCS; 2020-02-07)
PROC: 3E0R3BZ Introduction of Anesthetic Agent into Spinal Canal, Percutaneous Approach (ICD-10-PCS; 2020-02-07)
DX: O70.0 First degree perineal laceration during delivery (principal); Z37.0 Single live birth; Z3A.39 39 weeks gestation of pregnancy; O76 Abnormality in fetal heart rate and rhythm complicating labor and delivery
CPT/HCPCS: 36415; 51702; 59025; 59409; 85025; 85027; 86592; 86850; 86900; 86901; A9270-GY; J2001; J2590; J3010; J3490; J7120

== ENCOUNTER 2021-11-05 15:01 | Inpatient (IN) | payer OTHER ==
[2021-11-05] MEDS ORDERED: Nalbuphine 10 MG/1 ML Vial IVPUSH PRN (15:13)
[2021-11-05] MEDS ORDERED: Ondansetron 4 MG/2 ML SDV IVPUSH PRN (15:13)
[2021-11-05] MEDS ORDERED: Oxytocin/Lactated Ringers 10 UNIT/1,000 ML BAG IV SCH ×2 (15:15)
[2021-11-05] MEDS: Lactated Ringers 1,000 ML IV SCH ×2 (16:14→18:46)
--- NOTE | 2021-11-05 16:43 | PCM.PREANE ---
Preanesthetic Assessment - Procedure Proposed Procedure: Labor epidural - Anesthesia/Transfusion/Family Hx Anesthesia History: Prior Anesthesia Reaction Other Type of Anesthesia Reaction Comment: Pt stated that when she was 16 y.o stopped breathing PACU Family History of Anesthesia Reaction: No Transfusion History: No Prior Transfusion(s) Intubation History: Unknown - Review of Systems General: No Symptoms Pulmonary: No Symptoms Cardiovascular: No Symptoms Gastrointestinal: Abdominal Pain (uterine contractions) Neurological: No Symptoms Other: Reports: Easy Bruising - Physical Assessment NPO Status Date: 11/05/21 NPO Status Time: 16:45 Vital Signs: Last Vital Signs Temp 98.1 F 11/05/21 15:49 Pulse 82 11/05/21 15:49 Resp 18 11/05/21 15:49 BP 135/85 11/05/21 15:49 Pulse Ox 100 11/05/21 15:49 Height: 1.57 m Weight: 95.708 kg ASA Class: 2 Mental Status: Alert & Oriented x3 Airway Class: Mallampati = 1 Dentition: Reports: Caries Thyro-Mental Finger Breadths: 3 Mouth Opening Finger Breadths: 3 ROM/Head Extension: Full Lungs: Clear to Auscultation, Normal Respiratory Effort Cardiovascular: Regular Rate, Regular Rhythm, No Murmurs - Lab Values: Laboratory Last Values WBC 9.58 K/mm3 (3.98-10.04) 11/05/21 15:30 RBC 4.15 M/mm3 (3.98-5.22) 11/05/21 15:30 Hgb 10.9 gm/dl (11.2-15.7) L 11/05/21 15:30 Hct 35.1 % (34.1-44.9) 11/05/21 15:30 MCV 84.6 fl (79.4-94.8) 11/05/21 15:30 MCH 26.3 pg (25.6-32.2) 11/05/21 15:30 MCHC 31.1 g/dl (32.2-35.5) L 11/05/21 15:30 RDW Std Deviation 43.9 fL (36.4-46.3) 11/05/21 15:30 Plt Count 198 K/mm3 (182-369) 11/05/21 15:30 MPV 11.3 fl (9.4-12.3) 11/05/21 15:30 Neut % (Auto) 72.1 % (34.0-71.1) H 11/05/21 15:30 Lymph % (Auto) 17.0 % (19.3-51.7) L 11/05/21 15:30 [place] % (Auto) 10.0 % (4.7-12.5) 11/05/21 15:30 Eos % (Auto) 0.4 (0.7-5.8) L 11/05/21 15:30 Baso % (Auto) 0.1 % (0.1-1.2) 11/05/21 15:30 Neut # (Auto) 6.90 K/mm3 (1.56-6.13) H 11/05/21 15:30 Lymph # (Auto) 1.63 K/mm3 (1.18-3.74) 11/05/21 15:30 [place] # (Auto) 0.96 K/mm3 (0.24-0.36) H 11/05/21 15:30 Eos # (Auto) 0.04 K/mm3 (0.04-0.36) 11/05/21 15:30 Baso # (Auto) 0.01 K/mm3 (0.01-0.08) 11/05/21 15:30 SARS-CoV-2 RNA (JAMES) Negative (NEGATIVE) 11/05/21 15:25 Blood Type O POSITIVE 11/05/21 15:30 Gel Antibody Screen Negative 11/05/21 15:30 - Allergies Allergies/Adverse Reactions: Allergies Allergy/AdvReac Type Severity Reaction Status Date / Time No Known Allergies Allergy Verified 09/27/19 17:38 - Acknowledgements Anesthesia Type Planned: Epidural Pt an Appropriate Candidate for the Planned Anesthesia: Yes Alternatives and Risks of Anesthesia Discussed w Pt/Guardian: Yes Pt/Guardian Understands and Agrees with Anesthesia Plan: Yes PreAnesthesia Questionnaire HEENT History: Reports: None Cardiovascular History: Reports: None Respiratory History: Reports: None Gastrointestinal History: Reports: GERD ( induced) Genitourinary History: Reports: None 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: , 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 (See Below) Other OB/BYN History: LSIL on pap 11/2017, normal paps since then Musculoskeletal History: Reports: None Neurological History: Reports: None Psychiatric History: Reports: None Endocrine/Metabolic History: Reports: None Hematologic History: Reports: Anemia, Iron Deficiency Immunologic History: Reports: None Oncologic (Cancer) History: Reports: None Dermatologic History: Reports: None - Past Surgical History Musculoskeletal Surgical History: Reports: Other (See Below) Other Musculoskeletal Surgeries/Procedures:: cyst removed off of shoulder - SUBSTANCE USE Tobacco Use Status *Q: Former Tobacco User (January 2021) Tobacco Use Within Last Twelve Months: Cigarettes Second Hand Smoke Exposure: No Days Per Week of Alcohol Use: 0 Number of Drinks Per Day: 0 Total Drinks Per Week: 0 Recreational Drug Use History: No - HOME MEDS Home Medications: Home Meds Docosahexaenoic Acid [ Dha] 200 mg PO DAILY 11/05/21 [History] - CURRENT (IN HOUSE) MEDS Current Meds: Current Medications Oxytocin/Lactated Ringer's (Pitocin In Lr 10 Units/1,000 Ml) 10 unit in 1,000 mls @ 12 mls/hr IV TITRATE TETE; Protocol Last Admin: 11/05/21 16:14 Dose: 2 munits/min, 12 mls/hr Documented by: Oxytocin/Lactated Ringer's (Pitocin In Lr 10 Units/1,000 Ml) 10 unit in 1,000 mls @ 100 mls/hr IV .CONTINUOUS TETE Lactated Ringer's (Ringers, Lactated) 1,000 mls @ 100 mls/hr IV ASDIRECTED TETE Last Admin: 11/05/21 16:14 Dose: 100 mls/hr Documented by: Nalbuphine HCl (Nalbuphine 10 Mg/1 Ml Vial) 10 mg IVPUSH Q2H PRN PRN Reason: Pain Ondansetron HCl (Ondansetron 4 Mg/2 Ml Sdv) 4 mg IVPUSH Q4H PRN PRN Reason: Nausea/Vomiting Sodium Chloride (Sodium Chloride 0.9% 10 Ml Syringe) 10 ml FLUSH 0900,2100 [facility]
--- NOTE | 2021-11-05 17:42 | PCM.LDHP ---
L&D History of Present Illness - General Date of Service: 11/05/21 Admit Problem/Dx: Patient Status Order with Admit Dx/Problem 11/05/21 15:13 Patient Status [ADT] Routine Admission Diagnosis/Problem Admission Diagnosis/Problem Source of Information: Patient History Limitations: Reports: No Limitations - History of Present Illness Introduction:: 26 yo at 39 weeks gestation admitted for elective induction of labor at term. She has not been feeling contractions and membranes intact. GBS test is negative. Baby has been measuring large on ultrasound, last US was 10/04/21 and EFW was 5 lb 5oz (87%). She has received influenza and Tdap vaccines with this , but has not had COVID vaccination. Covid test on admission today is negative. First was induced at 39 weeks with borderline bp's and baby girl weighted 7 lb 13 oz. Blood type is O+, antibody screen negative, HBsAg, HIV, RPR, Hep C all negative. Good antibodies to Varicella and rubella. Prequel was done and negative for trisomies and XX sex chromosomes. MSAFP was negative. 1 hour glucola normal at 86. She plans to breastfeed. Current was complicated by hyperemesis gravidarum. Cervix is favorable for induction with Goodwin Score of 11. 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 Below) Other OB/BYN History: LSIL on pap 11/2017, normal paps since then Musculoskeletal History: Reports: None Neurological History: Reports: None Psychiatric History: Reports: None Endocrine/Metabolic History: Reports: None Hematologic History: Reports: Anemia, Iron Deficiency Other Hematologic History: anemic in Immunologic History: Reports: None Oncologic (Cancer) History: Reports: None Dermatologic History: Reports: None - Past Surgical History Other Musculoskeletal Surgeries/Procedures:: cyst removed off of shoulder Social & Family History - Family History Family Medical History: No Pertinent Family History - Tobacco Use Tobacco Use Status *Q: Former Tobacco User (January 2021) Used Tobacco, but Quit: Yes Month/Year Tobacco Last Used: Second Hand Smoke Exposure: No - Caffeine Use Caffeine Use: Reports: None - Alcohol Use Days Per Week of Alcohol Use: 0 Number of Drinks Per Day: 0 Total Drinks Per Week: 0 - Recreational Drug Use Recreational Drug Use: No - Living Situation & Occupation Living situation: Reports: with Significant Other 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) H&P Review of Systems - Review of Systems: Review Of Systems: See Below General: Reports: No Symptoms HEENT: Reports: No Symptoms Pulmonary: Reports: No Symptoms Cardiovascular: Reports: Edema Gastrointestinal: Reports: No Symptoms Genitourinary: Reports: No Symptoms Musculoskeletal: Reports: No Symptoms Skin: Reports: No Symptoms Psychiatric: Reports: No Symptoms L&D Exam - Exam Exam: See Below - Vital Signs Vital Signs: Last Vital Signs Temp 36.7 C 11/05/21 15:49 Pulse 82 11/05/21 15:49 Resp 18 11/05/21 15:49 BP 135/85 11/05/21 15:49 Pulse Ox 100 11/05/21 15:49 Weight: 95.708 kg - OB Specific Contraction Frequency (min): 2-3 minutes on pitocin 4mU/min Contraction Intensity: Mild (2-3) Movement: Active Heart Tones: Present Heart Tones per Min: 140 Heart Rate (FHR) Variability: Moderate (6-25 bpm) Presentation: Vertex Estimated Weight: 8 lb - Goodwin Score Goodwin Score Cervix Position: Anterior Goodwin Score Consistency: Soft Goodwin Score Effacement: >80% Goodwin Score Dilation: 3-4 cm Goodwin Score Infant's Station: -1 ,0 Goodwin Score Total: 11 - Exam General: Alert, Oriented, Cooperative HEENT: Mucosa Moist & [place], Pupils Equal Neck: Supple, Trachea Midline Lungs: Normal Respiratory Effort Cardiovascular: Regular Rate, Regular Rhythm GI/Abdominal Exam: Soft, No Distention Rectal Exam: Deferred Genitourinary: Normal external exam, Cervical dilitation (3-4 cm), Enlarged uterus Back Exam: Normal Inspection, Full Range of Motion Extremities: Pedal Edema Skin: Warm, Dry, Intact Psychiatric: Alert, Normal Affect, Normal Mood - Patient Data Lab Results Last 24 hrs: Laboratory Results - last 24 hr 11/05/21 11/05/21 11/05/21 Range/Units 15:25 15:30 15:30 WBC 9.58 (3.98-10.04) K/mm3 RBC 4.15 (3.98-5.22) M/mm3 Hgb 10.9 L (11.2-15.7) gm/dl Hct 35.1 (34.1-44.9) % MCV 84.6 (79.4-94.8) fl MCH 26.3 (25.6-32.2) pg MCHC 31.1 L (32.2-35.5) g/dl RDW Std Deviation 43.9 (36.4-46.3) fL Plt Count 198 (182-369) K/mm3 MPV 11.3 (9.4-12.3) fl Neut % (Auto) 72.1 H (34.0-71.1) % Lymph % (Auto) 17.0 L (19.3-51.7) % [place] % (Auto) 10.0 (4.7-12.5) % Eos % (Auto) 0.4 L (0.7-5.8) Baso % (Auto) 0.1 (0.1-1.2) % Neut # (Auto) 6.90 H (1.56-6.13) K/mm3 Lymph # (Auto) 1.63 (1.18-3.74) K/mm3 [place] # (Auto) 0.96 H (0.24-0.36) K/mm3 Eos # (Auto) 0.04 (0.04-0.36) K/mm3 Baso # (Auto) 0.01 (0.01-0.08) K/mm3 SARS-CoV-2 RNA (JAMES) Negative (NEGATIVE) Blood Type O POSITIVE Gel Antibody Screen Negative Result Diagrams: 11/05/21 15:30 - Problem List (1) 39 weeks gestation of SNOMED Code(s): 86845239 ICD Code: Z3A.39 - 39 WEEKS GESTATION OF Status: Acute Current Visit: No (2) Encounter for elective induction of labor SNOMED Code(s): 626181450 ICD Code: Z34.90 - ENCNTR FOR SUPRVSN OF NORMAL , UNSP, UNSP TRIMESTER Status: Acute Current Visit: No Problem List Initiated/Reviewed/Updated: Yes Orders Last 24hrs: Active Orders 24 hr Category Date Time Status Patient Status [ADT] Routine ADT 11/05/21 15:13 Active Activity as Tolerated [RC] PFP Care 11/05/21 15:13 Active Communication Order [RC] ASDIRECTED Care 11/05/21 15:13 Active Heart Tones [RC] ASDIRECTED Care 11/05/21 15:14 Active Non Stress Test [RC] PER UNIT ROUTINE Care 11/05/21 15:13 Active Notify Provider [RC] PFP Care 11/05/21 15:13 Active Notify Provider [RC] PRN Care 11/05/21 15:13 Active Peripheral IV Care [RC] . DIRECTED Care 11/05/21 15:14 Active Vital Signs [RC] PER UNIT ROUTINE Care 11/05/21 15:13 Active Regular Diet [DIET] Diet 11/05/21 Dinner Active RAPID PLASMA REAGIN,RPR [CHEM] Routine Lab 11/05/21 15:30 Received Lactated Ringers [Ringers, Lactated] 1,000 ml Med 11/05/21 15:15 Active IV ASDIRECTED Nalbuphine [Nubain] Med 11/05/21 15:13 Active 10 mg IVPUSH Q2H PRN Ondansetron [Zofran] Med 11/05/21 15:13 Active 4 mg IVPUSH Q4H PRN Oxytocin/Lactated Ringers [Pitocin in LR 10 Units/1,000 Med 11/05/21 15:15 Active ML] 10 unit in 1,000 ml IV .CONTINUOUS Oxytocin/Lactated Ringers [Pitocin in LR 10 Units/1,000 Med 11/05/21 15:15 Active ML] 10 unit in 1,000 ml IV TITRATE Sodium Chloride 0.9% [Saline Flush] Med 11/05/21 21:00 Active 10 ml FLUSH 0900,2100 Electronic Heart Tones Ext w TOCO [WOMSER] Oth 11/05/21 15:13 Ordered Routine Electronic Heart Tones Internal [WOMSER] Per Unit Oth 11/05/21 15:13 Ordered Routine Peripheral IV Insertion Adult [OM.PC] Routine Oth 11/05/21 15:13 Ordered Resuscitation Status Routine Resus Stat 11/05/21 15:13 Ordered Medication Orders Oxytocin/Lactated Ringer's (Pitocin In Lr 10 Units/1,000 Ml) 10 unit in 1,000 mls @ 12 mls/hr IV TITRATE TETE; Protocol Last Admin: 11/05/21 16:14 Dose: 2 munits/min, 12 mls/hr Documented by: ISRA Oxytocin/Lactated Ringer's (Pitocin In Lr 10 Units/1,000 Ml) 10 unit in 1,000 mls @ 100 mls/hr IV .CONTINUOUS TETE Lactated Ringer's (Ringers, Lactated) 1,000 mls @ 100 mls/hr IV ASDIRECTED TETE Last Admin: 11/05/21 16:14 Dose: 100 mls/hr Documented by: ISRA Nalbuphine HCl (Nalbuphine 10 Mg/1 Ml Vial) 10 mg IVPUSH Q2H PRN PRN Reason: Pain Ondansetron HCl (Ondansetron 4 Mg/2 Ml Sdv) 4 mg IVPUSH Q4H PRN PRN Reason: Nausea/Vomiting Sodium Chloride (Sodium Chloride 0.9% 10 Ml Syringe) 10 ml FLUSH 0900,2100 [facility] Assessment/Plan Comment:: at 39 weeks gestation with favorable cervix. GBS negative. Pitocin induction started per protocol and AROM performed at 1730 for augmentation. Moderate amount of clear fluid drained. Expectant management of labor, an ticipate vaginal delivery. Epidural when patient requests. Patient plans to breastfeed - will do skin to skin after delivery and delayed cord clamping if appropriate. Initial BP readings have been elevated in the hospital. Will monitor closely to see if they will come down once she gets settled. Her bp in the office has been wnl up to this time.
[2021-11-05] MEDS ORDERED: Bupivacaine 0.25% 10 ML SDV ONE (19:16)
[2021-11-05] MEDS ORDERED: diphenhydrAMINE 50 MG/ML SDV IVPUSH PRN (19:16)
[2021-11-05] MEDS ORDERED: fentaNYL 100 MCG/2 ML SDV EPIDUR PRN (19:16)
[2021-11-05] MEDS ORDERED: ePHEDrine 50 MG/ML SDV IVPUSH PRN (19:16)
[2021-11-05] MEDS ORDERED: Bupivacaine/fentaNYL/NS 100 ML Bag EPIDUR PRN (19:16)
[2021-11-05] MEDS ORDERED: Sodium Chloride 0.9% 10 ML Syringe FLUSH SCH (21:00)
[2021-11-05] MEDS ORDERED: Lidocaine 1% 50 ML MDV ONE (22:04)
--- NOTE | 2021-11-05 23:11 | PCM.DEL ---
L & D Note - General Info Date of Service: 11/05/21 Mother's Due Date: 11/12/21 - Delivery Note Labor: Augmented by ARM, Induced by Oxytocin Delivery Outcome: Livebirth Delivery Method: Spontaneous Vaginal Delivery-Single Delivery Mode: Spontaneous Presentation: Left Occiput Anterior (IRVING) Nuchal Cord: Present (1 loop, easily reduced) Prep: Povidone-Iodine (Betadine Anesthesia Type: Epidural Anesthetic: Lidocaine (Xylocaine) 1% Plain Local Anesthetic Volume: Other (10cc) Amniotic Fluid Description: Clear Episiotomy Type: None Laceration: Vaginal (Left vaginal sidewall) Suture type: Vicryl Suture size: 4-0 Placenta: Intact, Spontaneous Cord: 3 Vessels Estimated Blood Loss: 100 Resuscitation Needed: No : Suctioned, Bulb Syringe, Stimulated, Warmed, Warmer Used Provider: Jessica Portillo Score 1 min: 6 Score 5 min: 9 Post Delivery Events: Shoulder Dystocia (Alfredo and suprapubic pressure successful) Delivery Comments (Free Text/Narrative):: 26 yo at 39 weeks gestation admitted for elective induction of labor at term. She had not been feeling contractions and membranes intact. GBS test is negative. Baby has been measuring large on ultrasound, last US was 10/04/21 and EFW was 5 lb 5oz (87%). She has received influenza and Tdap vaccines with this , but has not had COVID vaccination. Covid test on admission today is negative. First was induced at 39 weeks with borderline bp's and baby girl weighed 7 lb 13 oz. Blood type is O+, antibody screen negative, HBsAg, HIV, RPR, Hep C all negative. Good antibodies to Varicella and rubella. Prequel was done and negative for trisomies and XX sex chromosomes. MSAFP was negative. 1 hour glucola normal at 86. She plans to breastfeed. Current was complicated by hyperemesis gravidarum. Cervix is favorable for induction with Goodwin Score of 11. Pitocin induction started per protocol and increased to 4mU/min. At 1730, AROM performed for moderate amount of clear fluid. She was 3-4 cm dilated at that t leobardo. Contractions increased in intensity after that and requested epidural which was placed and dosed at 1935. She had good relief with epidural. Pitocin was stopped due to tachysystole before the placement of the epidural. She was completely dilated by 2129 and I was called to come in. When I arrived, we had her set up and started pushing at about 2144 and she did well with pushing. Head delivered from [place] presentation and there was a nuchal cord x 1 that was easily reduced. There was a mild should dystocia that was released with Alfredo and Suprapubic pressure. I did feel a pop while trying to get the shoulders out. Time of delivery was 2153 and we had a baby girl. Baby was limp and not crying so cord was clamped and baby brought over to the Panda table. With stimulating and suctioning, baby started crying and color and tone improved. Apgars were 6 and 9 at 1 and 5 minutes respectively. Placenta delivered spontaneously at 2201 and was intact with 3 vessels in the cord. Pitocin IV bolus was started. There was no perineal tear but a left vaginal sidewall tear that was bleeding. 4-0 Vicryl was used to repair with a running subcuticular stitch. Bimanual massage was performed and some blood clots expressed. Uterus was firm. EBL 100 ml. Baby was brought back to mom, placed skin to skin and latched. Both Mom and baby were left in the delivery room in stable condition. Induction Criteria - Goodwin Score Goodwin Score Dilation: 3-4 cm Goodwin Score Effacement: >80% [place] Score Infant's Station: -1 ,0 Goodwin Score Consistency: Soft Goodwin Score Cervix Position: Anterior Goodwin Score Total: 11 Goodwin Score Presenting Part: Reports: Cephalic - Induction Gestational Age >/= 39 wks: Yes Estimated Pelvis: Reports: Adequate Reassuring Monitoring Strip: Yes Absence of Tachy Systole: Yes - Augmentation Estimated Pelvis: Reports: Adequate Weight Estimated:: Reports: AGA Estimated Weight if LGA: 3.629 kg Reassuring Monitoring Strip: Yes Absence of Tachy Systole: Yes - General Info Date of Service: 11/05/21 - Review of Systems General: Reports: No Symptoms HEENT: Reports: No Symptoms Pulmonary: Reports: No Symptoms Cardiovascular: Reports: No Symptoms Gastrointestinal: Reports: No Symptoms Genitourinary: Reports: No Symptoms Musculoskeletal: Reports: No Symptoms Skin: Reports: No Symptoms Neurological: Reports: No Symptoms Psychiatric: Reports: No Symptoms - Patient Data Vitals - Most Recent: Last Vital Signs Temp 36.7 C 11/05/21 15:49 Pulse 82 11/05/21 15:49 Resp 18 11/05/21 15:49 BP 135/85 11/05/21 15:49 Pulse Ox 100 11/05/21 15:49 Weight - Most Recent: 95.708 kg Lab Results Last 24 Hours: Laboratory Results - last 24 hr 11/05/21 11/05/21 11/05/21 Range/Units 15:25 15:30 15:30 WBC 9.58 (3.98-10.04) K/mm3 RBC 4.15 (3.98-5.22) M/mm3 Hgb 10.9 L (11.2-15.7) gm/dl Hct 35.1 (34.1-44.9) % MCV 84.6 (79.4-94.8) fl MCH 26.3 (25.6-32.2) pg MCHC 31.1 L (32.2-35.5) g/dl RDW Std Deviation 43.9 (36.4-46.3) fL Plt Count 198 (182-369) K/mm3 MPV 11.3 (9.4-12.3) fl Neut % (Auto) 72.1 H (34.0-71.1) % Lymph % (Auto) 17.0 L (19.3-51.7) % [place] % (Auto) 10.0 (4.7-12.5) % Eos % (Auto) 0.4 L (0.7-5.8) Baso % (Auto) 0.1 (0.1-1.2) % Neut # (Auto) 6.90 H (1.56-6.13) K/mm3 Lymph # (Auto) 1.63 (1.18-3.74) K/mm3 [place] # (Auto) 0.96 H (0.24-0.36) K/mm3 Eos # (Auto) 0.04 (0.04-0.36) K/mm3 Baso # (Auto) 0.01 (0.01-0.08) K/mm3 RPR Non-reactive (NONREACTIVE) SARS-CoV-2 RNA (JAMES) Negative (NEGATIVE) Blood Type Gel Antibody Screen 11/05/21 Range/Units 15:30 WBC (3.98-10.04) K/mm3 RBC (3.98-5.22) M/mm3 Hgb (11.2-15.7) gm/dl Hct (34.1-44.9) % MCV (79.4-94.8) fl MCH (25.6-32.2) pg MCHC (32.2-35.5) g/dl RDW Std Deviation (36.4-46.3) fL Plt Count (182-369) K/mm3 MPV (9.4-12.3) fl Neut % (Auto) (34.0-71.1) % Lymph % (Auto) (19.3-51.7) % [place] % (Auto) (4.7-12.5) % Eos % (Auto) (0.7-5.8) Baso % (Auto) (0.1-1.2) % Neut # (Auto) (1.56-6.13) K/mm3 Lymph # (Auto) (1.18-3.74) K/mm3 [place] # (Auto) (0.24-0.36) K/mm3 Eos # (Auto) (0.04-0.36) K/mm3 Baso # (Auto) (0.01-0.08) K/mm3 RPR (NONREACTIVE) SARS-CoV-2 RNA (JAMES) (NEGATIVE) Blood Type O POSITIVE Gel Antibody Screen Negative Med Orders - Current: Current Medications Diphenhydramine HCl (Diphenhydramine 50 Mg/Ml Sdv) 25 mg IVPUSH Q6H PRN PRN Reason: pruritis Ephedrine Sulfate (Ephedrine 50 Mg/Ml Sdv) 5 mg IVPUSH ASDIRECTED PRN PRN Reason: Hypotension Fentanyl (Fentanyl 100 Mcg/2 Ml Sdv) 100 mcg EPIDUR Q3H PRN PRN Reason: Pain Last Admin: 11/05/21 19:23 Dose: 100 mcg Documented by: Fentanyl/Bupivacaine HCl (Bupivacaine/Fentanyl/Ns 100 Ml Bag) 100 ml EPIDUR ASDIRECTED PRN PRN Reason: Pain Oxytocin/Lactated Ringer's (Pitocin In Lr 10 Units/1,000 Ml) 10 unit in 1,000 mls @ 12 mls/hr IV TITRATE TETE; Protocol Last Titration: 12/16/21 20:55 Dose: 0 munits/min, 0 mls/hr Documented by: Oxytocin/Lactated Ringer's (Pitocin In Lr 10 Units/1,000 Ml) 10 unit in 1,000 mls @ 100 mls/hr IV .CONTINUOUS TETE Lactated Ringer's (Ringers, Lactated) 1,000 mls @ 100 mls/hr IV ASDIRECTED TETE Last Admin: 11/05/21 18:46 Dose: 100 mls/hr Documented by: Nalbuphine HCl (Nalbuphine 10 Mg/1 Ml Vial) 10 mg IVPUSH Q2H PRN PRN Reason: Pain Ondansetron HCl (Ondansetron 4 Mg/2 Ml Sdv) 4 mg IVPUSH Q4H PRN PRN Reason: Nausea/Vomiting Sodium Chloride (Sodium Chloride 0.9% 10 Ml Syringe) 10 ml FLUSH 0900,2100 TETE Discontinued Medications Lidocaine HCl (Lidocaine 1% 50 Ml Mdv) Confirm Administered Dose 50 ml .[facility] .[facility] Stop: 11/05/21 22:05 - Exam General: Alert, Oriented, Cooperative, No Acute Distress HEENT: Pupils Equal, Mucous Membr. Moist/[place] Neck: Supple Lungs: Normal Respiratory Effort Cardiovascular: Regular Rate, Regular Rhythm GI/Abdominal Exam: Normal Bowel Sounds (Female) Exam: Enlarged Uterus (Uterus firm, at umbilicus), Vaginal Bleeding Back Exam: Normal Inspection, Full Range of Motion Extremities: Pedal Edema Skin: Warm, Dry, Intact Neurological: No New Focal Deficit Psy/Mental Status: Alert, Normal Affect, Normal Mood - Problem List & Annotations (1) 39 weeks gestation of SNOMED Code(s): 63016858 Code(s): Z3A.39 - 39 WEEKS GESTATION OF Status: Acute Current Visit: No (2) Encounter for elective induction of labor SNOMED Code(s): 348778954 Code(s): Z34.90 - ENCNTR FOR SUPRVSN OF NORMAL , UNSP, UNSP TRIMESTER Status: Acute Current Visit: No (3) Mother currently breast-feeding SNOMED Code(s): 360871717 Code(s): Z39.1 - ENCOUNTER FOR CARE AND EXAMINATION OF LACTATING MOTHER Status: Acute Current Visit: No (4) Normal spontaneous vaginal delivery SNOMED Code(s): 68601150, 007592669 Code(s): O80 - ENCOUNTER FOR FULL-TERM UNCOMPLICATED DELIVERY Status: Acute Current Visit: No - Problem List Review Problem List Initiated/Reviewed/Updated: Yes - My Orders Last 24 Hours: My Active Orders 11/05/21 15:13 Patient Status [ADT] Routine Activity as Tolerated [RC] PFP Communication Order [RC] ASDIRECTED Non Stress Test [RC] PER UNIT ROUTINE Notify Provider [RC] PFP Notify Provider [RC] PRN Vital Signs [RC] PER UNIT ROUTINE Nalbuphine [Nubain] 10 mg IVPUSH Q2H PRN Ondansetron [Zofran] 4 mg IVPUSH Q4H PRN Electronic Heart Tones Ext w TOCO [WOMSER] Routine Electronic Heart Tones Internal [WOMSER] Per Unit Routine Peripheral IV Insertion Adult [OM.PC] Routine Resuscitation Status Routine 11/05/21 15:14 Heart Tones [RC] ASDIRECTED Peripheral IV Care [RC] . DIRECTED 11/05/21 15:15 Lactated Ringers [Ringers, Lactated] 1,000 ml IV ASDIRECTED Oxytocin/Lactated Ringers [Pitocin in LR 10 Units/1,000 ML] 10 unit in 1,000 ml IV .CONTINUOUS Oxytocin/Lactated Ringers [Pitocin in LR 10 Units/1,000 ML] 10 unit in 1,000 ml IV TITRATE 11/05/21 Dinner Regular Diet [DIET] 11/05/21 21:00 Sodium Chloride 0.9% [Saline Flush] 10 ml FLUSH 0900,2100 11/05/21 22:35 Patient Status Manage Transfer [TRANSFER] Routine - Assessment Assessment:: 1. after elective induction at 39 weeks. Mild shoulder dystocia. EBL 100 ml 2. - baby latched in the delivery room 3. Elevated bp's noted, had been normal during . - Plan Plan:: at 39 weeks gestation with favorable cervix. GBS negative. Pitocin induction started per protocol and AROM performed at 1730 for augmentation. Moderate amount of clear fluid drained. Expectant management of labor, anticipate vaginal delivery. Epidural when patient requests. Patient plans to breastfeed - will do skin to skin after delivery and delayed cord clamping if appropriate. Initial BP readings have been elevated in the hospital. Will monitor closely to see if they will come down once she gets settled. Her bp in the office has been wnl up to this time. 11/05/21 at 2310 1. Routine care 2. support and education, encourage skin to skin 3. Monitor BP closely and if readings are running >160/110 will treat with labetalol. Patient reports her bp was elevated after delivery with her last and they settled. She denies any headache, nausea or visual scotoma.
[2021-11-05] MEDS ORDERED: Simethicone 80 MG Tab.Chew PO PRN (23:26)
[2021-11-05] MEDS ORDERED: Witch Hazel Medicated Pads 40/Jar TOP PRN (23:26)
[2021-11-05] MEDS ORDERED: Benzocaine/Menthol 20%-0.5% Spray 78 GM Cannister TOP PRN (23:26)
[2021-11-05] MEDS ORDERED: Docusate Sodium 100 MG Cap PO PRN (23:26)
[2021-11-06] MEDS: Ibuprofen 600 MG Tab PO PRN ×4 (00:22→18:40)
[2021-11-06] MEDS ORDERED: Prenatal Multivitamin with Calcium/Folic Acid/Iron Tab PO SCH (09:00)
[2021-11-06] MEDS: Acetaminophen 325 MG Tab PO PRN ×2 (10:16→15:43)
--- NOTE | 2021-11-07 11:07 | PCM.DCSUM1 ---
Discharge Summary - Hospital Course Free Text/Narrative:: 26 yo at 39 weeks gestation admitted for elective induction of labor at term. She had not been feeling contractions and membranes intact. GBS test is negative. Baby has been measuring large on ultrasound, last US was 10/04/21 and EFW was 5 lb 5oz (87%). She has received influenza and Tdap vaccines with this , but has not had COVID vaccination. Covid test on admission today is negative. First was induced at 39 weeks with borderline bp's and baby girl weighed 7 lb 13 oz. Blood type is O+, antibody screen negative, HBsAg, HIV, RPR, Hep C all negative. Good antibodies to Varicella and rubella. Prequel was done and negative for trisomies and XX sex chromosomes. MSAFP was negative. 1 hour glucola normal at 86. She plans to breastfeed. Current was complicated by hyperemesis gravidarum. Cervix is favorable for induction with Goodwin Score of 11. Pitocin induction started per protocol and increased to 4mU/min. At 1730, AROM performed for moderate amount of clear fluid. She was 3-4 cm dilated at that time. Contractions increased in intensity after that and requested epidural which was placed and dosed at 1935. She had good relief with epidural. Pitocin was stopped due to tachysystole before the placement of the epidural. She was completely dilated by 2129 and I was called to come in. When I arrived, we had her set up and started pushing at about 5 and she did well with pushing. Head delivered from [place] presentation and there was a nuchal cord x 1 that was easily reduced. There was a mild should dystocia that was released with Alfredo and Suprapubic pressure. I did feel a pop while trying to get the shoulders out. Time of delivery was 2153 and we had a baby girl. Baby was limp and not crying so cord was clamped and baby brought over to the Panda table. With stimulating and suctioning, baby started crying and color and tone improved. Apgars were 6 and 9 at 1 and 5 minutes respectively. Placenta delivered spontaneously at 2202 and was intact with 3 vessels in the cord. Pitocin IV bolus was started. There was no perineal tear but a left vaginal sidewall tear that was bleeding. 4-0 Vicryl was used to repair with a running subcuticular stitch. Bimanual massage was performed and some blood clots expressed. Uterus was firm. EBL 100 ml. Baby was brought back to mom, placed skin to skin and latched. Both Mom and baby were left in the delivery room in stable condition. Patient has done well with light bleeding and no clots. Complains of some uterine cramping while and has been using ibuprofen and tylenol. Denies headache, nausea or dizziness. No calf tenderness. She has been and denies nipple pain, bruising or cracking. She is feeling comfortable with and has been hearing baby swallow. Her initial bp readings were elevated , but have since settled into normotensive range. Diagnosis: Stroke: No Modified Caren Scale: No Symptoms at All Modified Cocke Scale Score: 0 - Discharge Data Discharge Date: 11/06/21 Discharge Disposition: Home, Self-Care 01 Condition: Good - Referral to Home Health Primary Care Physician: Jessica Portillo MD - Discharge Diagnosis/Problem(s) (1) 39 weeks gestation of SNOMED Code(s): 44766860 ICD Code: Z3A.39 - 39 WEEKS GESTATION OF Status: Acute (2) Encounter for elective induction of labor SNOMED Code(s): 202505538 ICD Code: Z34.90 - ENCNTR FOR SUPRVSN OF NORMAL , UNSP, UNSP TRIMESTER Status: Acute (3) Mother currently breast-feeding SNOMED Code(s): 392169892 ICD Code: Z39.1 - ENCOUNTER FOR CARE AND EXAMINATION OF LACTATING MOTHER Status: Acute (4) Normal spontaneous vaginal delivery SNOMED Code(s): 32344240, 564527603 ICD Code: O80 - ENCOUNTER FOR FULL-TERM UNCOMPLICATED DELIVERY Status: Acute - Patient Instructions Diet: Usual Diet as Tolerated, Drink 8-10+ Glasses/Day Activity: As Tolerated Driving: May Drive Today Showering/Bathing: May Shower Notify Provider of: Fever, Increased Pain, Swelling and Redness, Drainage, Nausea and/or Vomiting - Discharge Plan *PRESCRIPTION DRUG MONITORING PROGRAM REVIEWED*: No *COPY OF PRESCRIPTION DRUG MONITORING REPORT IN PATIENT LINA: No Home Medications: Home Meds Docosahexaenoic Acid [ Dha] 200 mg PO DAILY 11/05/21 [History] Acetaminophen [Tylenol] 650 mg PO Q4H PRN tablet 11/06/21 [Rx] Benzocaine/Menthol [Dermoplast Pain Relief 20%-0.5% [place]] 1 applic TOP ASDIRECTED PRN canister 11/06/21 [Rx] Docusate Sodium [Colace] 100 mg PO BID PRN cap 11/06/21 [Rx] Ibuprofen [Motrin] 600 mg PO Q6H PRN tablet 11/06/21 [Rx] Vit with Ca/FA/Iron [ Plus Iron] 1 each PO DAILY tablet 11/06/21 [Rx] boyd Green [Tucks] 1 pad TOP ASDIRECTED PRN pad 11/06/21 [Rx] Oxygen Therapy Mode: Room Air Patient Handouts: Breast Pumping Tips, Hand Expression of Breast Milk, and Returning to Work, Tips for a Good Latch, and Cracked or Sore Nipples, Storing Breast Milk Referrals: Jessica Portillo MD [Primary Care Provider] - - Discharge Summary/Plan Comment DC Time >30 min.: No Total # of Minutes for Discharge Time: 20 Discharge Summary/Plan Comment: 26 yo at 39 weeks gestation admitted for elective induction of labor at term. She had not been feeling contractions and membranes intact. GBS test is negative. Baby has been measuring large on ultrasound, last US was 10/04/21 and EFW was 5 lb 5oz (87%). She has received influenza and Tdap vaccines with this , but has not had COVID vaccination. Covid test on admission today is negative. First was induced at 39 weeks with borderline bp's and baby girl weighed 7 lb 13 oz. Blood type is O+, antibody screen negative, HBsAg, HIV, RPR, Hep C all negative. Good antibodies to Varicella and rubella. Prequel was done and negative for trisomies and XX sex chromosomes. MSAFP was negative. 1 hour glucola normal at 86. She plans to breastfeed. Current was complicated by hyperemesis gravidarum. Cervix is favorable for induction with Goodwin Score of 11. Pitocin induction started per protocol and increased to 4mU/min. At 1730, AROM performed for moderate amount of clear fluid. She was 3-4 cm dilated at that time. Contractions increased in intensity after that and requested epidural which was placed and dosed at 1935. She had good relief with epidural. Pitocin was stopped due to tachysystole before the placement of the epidural. She was completely dilated by 2129 and I was called to come in. When I arrived, we had her set up and started pushing at about 2144 and she did well with pushing. Head delivered from [place] presentation and there was a nuchal cord x 1 that was easily reduced. There was a mild should dystocia that was released with Alfredo and Suprapubic pressure. I did feel a pop while trying to get the shoulders out. Time of delivery was 2153 and we had a baby girl. Baby was limp and not crying so cord was clamped and baby brought over to the Panda table. With stimulating and suctioning, baby started crying and color and tone improved. Apgars were 6 and 9 at 1 and 5 minutes respectively. Placenta delivered spontaneously at 2201 and was intact with 3 vessels in the cord. Pitocin IV bolus was started. There was no perineal tear but a left vaginal sidewall tear that was bleeding. 4-0 Vicryl was used to repair with a running subcuticular stitch. Bimanual massage was performed and some blood clots expressed. Uterus was firm. EBL 100 ml. Baby was brought back to mom, placed skin to skin and latched. Both Mom and baby were left in the delivery room in stable condition. Patient has done well with light bleeding and no clots. Complains of some uterine cramping while and has been using ibuprofen and tylenol. Denies headache, nausea or dizziness. No calf tenderness. She has been and denies nipple pain, bruising or cracking. She is feeling comfortable with and has been hearing baby swallow. Her initial bp readings were elevated , but have since settled into normotensive range. A/P: 1. at 39 weeks gestation after elective induction with pitocin and AROM. Mild shoulder dystocia that was treated with Alfredo and suprapubic pressure. Left vaginal sidewall laceration that was repaired with running subcuticular suture. Plan for routine instructions. Follow up in the clinic in 6 weeks for visit. plans to get vasectomy. Will plan to use minipill to prevent as a bridge. Will start at 6 week visit. 2. - doing well and feeling comfortable. Advised to continue vitamin and breastfeed on demand. 3. Borderline bp during intrapartum and initial period - bp has normalized. - General Info Date of Service: 11/05/21 Admission Dx/Problem (Free Text: Patient Status Order with Admit Dx/Problem 11/05/21 15:13 Patient Status [ADT] Routine Admission Diagnosis/Problem Admission Diagnosis/Problem Functional Status: Reports: Pain Controlled, Tolerating Diet, Ambulating, Urinating - Review of Systems General: Reports: No Symptoms HEENT: Reports: No Symptoms Pulmonary: Reports: No Symptoms Cardiovascular: Reports: Edema (No calf tenderness or masses. ) Gastrointestinal: Reports: No Symptoms Genitourinary: Reports: No Symptoms Musculoskeletal: Reports: No Symptoms Skin: Reports: No Symptoms Neurological: Reports: No Symptoms Psychiatric: Reports: No Symptoms - Patient Data Vitals - Most Recent: Last Vital Signs Temp 36.4 C 11/06/21 20:23 Pulse 82 11/06/21 20:23 Resp 14 11/06/21 20:23 BP 138/88 11/06/21 20:23 Pulse Ox 99 11/06/21 20:23 Weight - Most Recent: 95.708 kg Med Orders - Current: Current Medications Discontinued Medications Acetaminophen (Acetaminophen 325 Mg Tab) 650 mg PO Q4H PRN PRN Reason: mild pain or fever Last Admin: 11/06/21 15:43 Dose: 650 mg Documented by: Benzocaine/Menthol (Benzocaine/Menthol 20%-0.5% [place] 78 Gm Cannister) 0 gm TOP ASDIRECTED PRN PRN Reason: Perineal Comfort Measure Bupivacaine HCl (Bupivacaine 0.25% 10 Ml Sdv) 10 ml .ROUTE .[facility] ONE Stop: 11/05/21 19:17 Diphenhydramine HCl (Diphenhydramine 50 Mg/Ml Sdv) 25 mg IVPUSH Q6H PRN PRN Reason: pruritis Docusate Sodium (Docusate Sodium 100 Mg Cap) 100 mg PO BID PRN PRN Reason: Constipation Last Admin: 11/06/21 12:18 Dose: 100 mg Documented by: Ephedrine Sulfate (Ephedrine 50 Mg/Ml Sdv) 5 mg IVPUSH ASDIRECTED PRN PRN Reason: Hypotension Fentanyl (Fentanyl 100 Mcg/2 Ml Sdv) 100 mcg EPIDUR Q3H PRN PRN Reason: Pain Last Admin: 11/05/21 19:23 Dose: 100 mcg Documented by: Fentanyl/Bupivacaine HCl (Bupivacaine/Fentanyl/Ns 100 Ml Bag) 100 ml EPIDUR ASDIRECTED PRN PRN Reason: Pain Oxytocin/Lactated Ringer's (Pitocin In Lr 10 Units/1,000 Ml) 10 unit in 1,000 mls @ 12 mls/hr IV TITRATE TETE; Protocol Last Titration: 11/05/21 20:55 Dose: 0 munits/min, 0 mls/hr Documented by: Oxytocin/Lactated Ringer's (Pitocin In Lr 10 Units/1,000 Ml) 10 unit in 1,000 mls @ 100 mls/hr IV .CONTINUOUS TETE Lactated Ringer's (Ringers, Lactated) 1,000 mls @ 100 mls/hr IV ASDIRECTED TETE Last Admin: 11/05/21 18:46 Dose: 100 mls/hr Documented by: Ibuprofen (Ibuprofen 600 Mg Tab) 600 mg PO Q6H PRN PRN Reason: Mild pain or fever Last Admin: 11/06/21 18:40 Dose: 600 mg Documented by: Lidocaine HCl (Lidocaine 1% 50 Ml Mdv) Confirm Administered Dose 50 ml .ROUTE .[facility] ONE Stop: 11/05/21 22:05 Last Admin: 11/06/21 00:32 Dose: 50 ml Documented by: Nalbuphine HCl (Nalbuphine 10 Mg/1 Ml Vial) 10 mg IVPUSH Q2H PRN PRN Reason: Pain Ondansetron HCl (Ondansetron 4 Mg/2 Ml Sdv) 4 mg IVPUSH Q4H PRN PRN Reason: Nausea/Vomiting Prenat Multivit/[employer]/Iron/Folic Ac ( Multivitamin With Calcium/Folic Acid/Iron Tab) 1 each PO DAILY [facility] Last Admin: 11/06/21 10:16 Dose: 1 each Documented by: Simethicone (Simethicone 80 Mg Tab.Chew) 80 mg PO Q4H PRN PRN Reason: Gas Sodium Chloride (Sodium Chloride 0.9% 10 Ml Syringe) 10 ml FLUSH 0900,2100 [facility] Witch Isabelle (Witch Isabelle Medicated Pads 40/Jar) 1 pad TOP ASDIRECTED PRN PRN Reason: Perineal Comfort Measure Last Admin: 11/06/21 00:24 Dose: 1 applic Documented by: - Exam General: Reports: Alert, Oriented HEENT: Reports: Pupils Equal, Mucous Membr. Moist/[place] Lungs: Reports: Normal Respiratory Effort Cardiovascular: Reports: Regular Rate, Regular Rhythm GI/Abdominal Exam: Normal Bowel Sounds, Soft, Non-Tender, No Distention (Female) Exam: Normal External Exam, Fundal Height (Fundus 2 fingers below U), Vaginal Bleeding Rectal (Female) Exam: Deferred Back Exam: Reports: Normal Inspection (No bruising or tenderness at epidural site), Full Range of Motion Extremities: Non-Tender, Pedal Edema Skin: Reports: Warm, Dry, Intact Neurological: Reports: No New Focal Deficit Psy/Mental Status: Reports: Alert, Normal Affect, Normal Mood
== END 2021-11-06 22:08 | disposition home or self-care (01) | DRG 807 ==
LOC: JD.MS 15:01 → JD.OB 15:51
PROVIDERS: ADMIT Family Medicine; ATTEND Family Medicine
PROC: 10E0XZZ Delivery of Products of Conception, External Approach (ICD-10-PCS; principal; 2021-11-05)
PROC: 10907ZC Drainage of Amniotic Fluid, Therapeutic from Products of Conception, Via Natural or Artificial Opening (ICD-10-PCS; 2021-11-05)
PROC: 3E0R3BZ Introduction of Anesthetic Agent into Spinal Canal, Percutaneous Approach (ICD-10-PCS; 2021-11-05)
PROC: 00HU33Z Insertion of Infusion Device into Spinal Canal, Percutaneous Approach (ICD-10-PCS; 2021-11-05)
PROC: 0HQ9XZZ Repair Perineum Skin, External Approach (ICD-10-PCS; 2021-11-05)
DX: O69.81X0 Labor and delivery complicated by cord around neck, without compression, not applicable or unspecified (principal); Z37.0 Single live birth; Z3A.39 39 weeks gestation of pregnancy; O66.0 Obstructed labor due to shoulder dystocia; Z20.822 Contact with and (suspected) exposure to COVID-19
CPT/HCPCS: 36415; 51702; 59025; 59409; 85025; 85027; 86592; 86850; 86900; 86901; A9270-GY; J2001; J2590; J3010; J3490; J7120; U0002